=== PATIENT | female | born 1965 | race Caucasian/White ===

== ENCOUNTER 2023-10-13 21:20 | Emergency (ER) | payer OTHER, SELFPAY ==
[2023-10-13 21:35] VITALS: BP 154/93
--- NOTE | 2023-10-14 02:12 | ED.MUSCINJ ---
HPI-Injury
General
Chief Complaint: Fall
Source: patient
Exam Limitations: none
Time Seen by Provider: 10/14/23 01:45
Nursing documentation reviewed up to this point in time: agreed with
Travel History
Have you had any contact with someone who has COVID-19?: No
Do you have any symptoms of coronavirus? Fever > 100 degrees, chills, cough, shortness of breath, sore throat, loss of taste or smell, muscle aches, or headache?: No
History of Present Illness-Injury
Initial Injury comments:
This a pleasant 58-year-old female who presents with multiple musculoskeletal complaints. She was chasing her dog on October 02 when she slipped on some mud and fell landing on her left knee. She states that she has had increased swelling and
bruising in the knee since then. For the last day or so she states that her left ankle started to swell. She came in after a telehealth doctor advised her to get an ultrasound of the lower extremity. Patient has been ambulatory since the fall.
At that time she denied head injury or loss of consciousness. 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 She reports no new injuries. Denies fever, chills, nausea or vomiting. Denies chest pain or shortness
of breath. She is not on any blood thinners.
Past History
Past History
ED Past Medical History: CAD, HTN and Hypercholesterolemia
ED Past Surgical History: Cardiac
Social History
Tobacco: Non-smoker
Alcohol: Occasional
Drug: None
Personal:
Living: with family
Review of Systems
Review of Systems
Allergies reviewed?: Yes
All Other Systems: ROS reviewed and negative except as documented in HPI and ROS
Musculoskeletal: Reports joint pain, joint swelling, muscle pain, muscle stiffness and edema
Phy Exam
General Physical Exam
General Presentation: well appearing and mild distress
General age: appears stated age
General Skin: warm, dry and other (Some ecchymosis about the left knee)
General Habitus: obese
General Mental: alert
General Hydration: appears well hydrated
Cardiovascular Exam
Cardiovascular Exam: regular rate/rhythm and no edema
Pulmonary Exam
Pulmonary Exam: lungs clear and no respiratory distress
Neurological Exam
Neurological Exam: alert and oriented x3
Musculoskeletal Exam
Musculoskeletal Exam: full ROM, edema and neuro vasc intact
Skin Exam
Skin Exam: normal color, tenderness and other (Ecchymosis)
Psychiatric Exam
Psychiatric Exam: normal mood/affect
Injury Course
Orders/Labs/Results
Orders:
Orders
10/13/23 21:36
US Legs, Left [US Periph Venous LOWER Ext LT] Urgent
Comment:
Reason For Exam: brusing, swelling
10/13/23 21:38
CR Ankle - Left Min 3 Views Urgent
Comment:
Reason For Exam: fall, injury
CR Knee - Left 4 Or More View* Urgent
Comment:
Reason For Exam: fall, injury
10/13/23 21:39
CR Clavicle - Right Complete Urgent
Comment:
Reason For Exam: fall, injury
10/13/23 21:40
CR Leg Tibia/fibula Left 2 Vw Urgent
Comment:
Reason For Exam: fall, injury
10/14/23 02:10
Darin Wrap Left-Treatment ONCE
*Critical Care Note
Total Time (30-74mins, 75-104mins- exclusive of procedures): Not Applicable
ED Attending Note
-
Portions of this chart may have been created with voice recognition software.� Occasional wrong word or��sound alike� substitutions may have occurred due to the inherent limitations of voice recognition software.
Discharge Plan
Departure
Patient Disposition: Home (Routine Discharge)
Date of Disposition: 10/14/23
Time of Disposition: 02:15
Patient with high blood pressure during this ER visit?: Yes
Condition: Good
Discharge Problem:
Ecchymosis, Contusion
Instructions: Contusion (DC), BLOOD PRESSURE
Prescriptions:
No Action
atorvastatin 40 MG tablet
40 mg PO QPM Qty: 30 3RF
aspirin 81 MG tablet,delayed release (DR/EC)
81 mg PO DAILY Qty: 0 0RF
metoprolol tartrate 50 MG tablet
50 mg PO BID Qty: 60 3RF
nitroglycerin 0.4 MG tablet, sublingual
0.4 mg sublingual [id number] PRN (Reason: Chest Pain ) Qty: 25 3RF
Hydrochlorothiazide
25 mg PO DAILY
losartan 50 mg Tablet
50 mg PO DAILY
pantoprazole 40 MG tablet,delayed release (DR/EC)
40 mg PO DAILY
levothyroxine
50 mcg PO DAILY
Rx Instructions:
Pt. will bring in dosage
Referrals:
Do Hernandez PA-C [Family Provider] -
Activity Restrictions/Additional Instructions:
It was a pleasure meeting you and taking part in your care. We hope for your continued healing and wellness.
Please read discharge instructions in their entirety. However, they are for general education and may not describe your exact diagnosis at discharge. Information on your ER visit and medical conditions were discussed with you along with appropriate
follow up information...
If indicated, please take your medications as instructed and indicated on discharge paperwork.
Please schedule a follow up appointment as directed. Call to schedule an appointment
Please return to the emergency department with ANY change in, persisting, or worsening of symptoms. If any of your symptoms do not improve, or persist, or become more severe within 6-12 hours, please return to the emergency department for further
care.
Please return to the emergency department if you develop a headache, neck pain/stiffness, fever greater than 100.4F, chest pain, shortness of breath, persistent nausea, vomiting, slurred speech, difficulty walking, numbness/tingling, weakness, signs
of infection or any other symptoms that are worrisome to you.
If you have any questions or concerns please do not hesitate to call the Hospital at or E-mail me directly at [email or web address]
Interventions
Interventions:
*General Assessment Last Done: 10/13/23 21:34
*ED COVID-19 Vaccine History Last Done: 10/13/23 21:33
*Nursing Disposition Last Done: 10/14/23 02:50
Discharge Date and Time
Discharge Date/Time: 10/14/23 02:51
Print Language: KHMER
[2023-10-14 02:50] VITALS: BP 145/83
== END 2023-10-14 02:51 | disposition home or self-care (01) ==
LOC: EMR 21:20
PROVIDERS: EMERGENCY PHYSICIAN Student in an Organized Health Care Education/Training Program; FAMILY PHYSICIAN Student in an Organized Health Care Education/Training Program
DX: S80.02XA Contusion of left knee, initial encounter (principal); W01.0XXA Fall on same level from slipping, tripping and stumbling without subsequent striking against object, initial encounter; I10 Essential (primary) hypertension
CPT/HCPCS: 99284; 73000; 73564; 73590; 73610; 93971

== ENCOUNTER → 2023-10-29 09:35 | Outpatient (REF) | payer OTHER, SELFPAY | LOC: MRI 3T 09:35 | PROVIDERS: ATTENDING PHYSICIAN Student in an Organized Health Care Education/Training Program | DX: M25.562 Pain in left knee (principal); W19.XXXD Unspecified fall, subsequent encounter | CPT/HCPCS: 73721 ==

== ENCOUNTER → 2024-02-03 09:29 | Outpatient (REF) | payer OTHER, SELFPAY | LOC: HWRAD 09:29 | PROVIDERS: ATTENDING PHYSICIAN Surgery; FAMILY PHYSICIAN Student in an Organized Health Care Education/Training Program | DX: K40.90 Unilateral inguinal hernia, without obstruction or gangrene, not specified as recurrent (principal) | CPT/HCPCS: 74177; Q9967 ==

== ENCOUNTER → 2024-02-20 10:13 | Outpatient (REF) | payer OTHER, SELFPAY | LOC: HWRAD 10:13 | PROVIDERS: ATTENDING PHYSICIAN Student in an Organized Health Care Education/Training Program | DX: R74.8 Abnormal levels of other serum enzymes (principal) | CPT/HCPCS: 76700 ==

== ENCOUNTER 2024-05-07 06:44 | Day surgery (SDC) | payer OTHER, SELFPAY ==
[2024-05-07] VITALS (11 sets, daily range): BP systolic 107–136; BP diastolic 64–80; BMI 42.7
[2024-05-07] MEDS: TYLENOL 1000 MG PO (08:20)
--- NOTE | 2024-05-07 11:16 | OR.RPT ---
Addendum entered and electronically signed by Jeromy Driscoll MD 05/07/24 11:27:
The assistance of Jey LEE was required due to the complexity of the procedure. During the procedure she assisted with retraction, resection, and closure of the wound.
Original Note:
Operative Report
Operative Report
Primary Surgeon: Americo
Assisting Surgeon: Jey LEE
Pre-op Diagnosis: Bilateral inguinal hernias
Post-op Diagnosis: Same
Procedure Performed: Robot assisted laparoscopic repair of bilateral inguinal hernias
Anesthesia Type: GETA
Specimen / Cultures: None
Estimated Blood Loss: 35cc
Complications: None immediate
Operative Findings: Very large right groin indirect defect with massive amount of incarcerated omentum; large left cord lipoma with shallow indirect defect; B/L MID 3D Max
Date of surgery: 05/07/24
Indications:� This 58F developed a symptomatic right inguinal hernia and an incidental left inguinal hernia was identified on cross sectional imaging. She asked that we repair both groins today. Robot assisted laparoscopic repair was planned.
Description of procedure:� The patient was taken to the operating room and positioned into supine position. The patient�s abdomen was prepped and draped in standard sterile fashion. A time-out was completed verifying correct patient, procedure,
site, positioning, and implants and special equipment prior to beginning this procedure.
The right groin hernia was incarcerated. Unsuccessful attempts at reduction were made but ultimately abandoned. A stab incision was made in the left upper quadrant, a Veress needle was inserted and proper position was confirmed by aspiration and
saline drop test. Following this, pneumoperitoneum was created with insufflation of carbon dioxide to 12 mmHg. Then a 8mm robotic trocar was inserted above and to the left of the umbilicus. A laparoscope was inserted and the area of initial trocar
entry and Veress needle placement were both inspected and no injuries were found. Two 8mm trocars were then placed lateral to the rectus sheath under direct visualization.
Both inguinal regions were inspected and the median umbilical ligament, medial umbilical ligament, and lateral umbilical fold were identified. Attention was turned to the right groin. Omentum was manually reduced. The peritoneum was incised
transversely above the defect and a flap was developed in the caudad direction. Arash�s ligament was identified ultimately dissected to its junction with the iliac vein and the space of Retzius was developed bluntly.�The dissection was continued
inferiorly to the iliopubic tract, with care taken to avoid injury to the femoral branch of the genitofemoral nerve and the lateral femoral cutaneous nerve. The round ligament was sacrificed low near the peritoneum.
The direct space was inspected and no hernia defect was identified. The femoral space was inspected no defect was identified.� The indirect space was inspected and a hernia was identified and reduced by gentle traction. The sac was large and deep
but was totally reduced. The canal was inspected and a moderate sized lipoma was identified and reduced.
Attention was turned to the left groin and the above process was repeated. A shallow indirect hernia was identified and reduced by gentle traction. The canal was inspected and a large lipoma was identified and reduced by gentle traction. No other
hernias were identified.
Extra large left and right MID 3D max mesh was passed through a trocar. The mesh was placed into the preperitoneal space and moved into position to lay flat and completely cover the direct, indirect, and femoral spaces with overlap at the midline.
The mesh was secured into place using 2-0 vicryl suture to Arash�s ligament medially and laterally. Care was taken to avoid the inferolateral triangles containing the iliac vessels and genital nerves. The peritoneal flap was closed over the mesh
and secured with 2-0 monocryl stratafix suture in similar positions of safety. Flap rents on either side were repaired with 2-0 vicryl ad 2-0 monocryl suture. A 14g angiocath was used to decompress the preperitoneal space revealing good seal and all
mesh in good position without folding or curling.
After ensuring adequate hemostasis, the trocars were removed and the pneumoperitoneum allowed to escape. The trocar incisions were closed at the skin level using 4-0 monocryl and topical skin adhesive. All counts were correct and the patient
tolerated the procedure well and was taken to the postanesthesia care unit in stable condition.
[2024-05-07] MEDS: DILAUDID 0.25 MG IV (12:14)
== END 2024-05-07 13:32 | disposition home or self-care (01) ==
LOC: SDS 06:44
PROVIDERS: ATTENDING PHYSICIAN Surgery
DX: K40.20 Bilateral inguinal hernia, without obstruction or gangrene, not specified as recurrent (principal)
CPT/HCPCS: 49650; C1781

== ENCOUNTER 2024-07-02 14:32 | Emergency (ER) | payer OTHER, SELFPAY ==
[2024-07-02 14:48] VITALS: BP 119/79
[2024-07-02 15:14] LABS: % Eosinophils 3.9 % (0-6); % Immature Granulocytes 0.3 % (0-0.5); % Lymphocytes 16.3 % (20.5-51.1); % Monocytes 6.8 % (1.7-9.3); % Neutrophils 71.7 % (42.2-75.2); Absolute Basophils 0.1 10^3/uL (0-0.2); Absolute Eosinophils 0.2 10^3/uL (0-0.7); Absolute Monocytes 0.4 10^3/uL (0.1-0.6); Absolute Neutrophils 4.2 10^3/uL (1.4-6.5); Hematocrit 39.7 % (37.0-47.0); Hemoglobin 12.7 g/dL (12.0-16.0); Mean Corpuscular Hgb 26.8 pg (27.0-31.0); Mean Corpuscular Volume 83.9 fL (81.0-99.0); Mean Platelet Volume 10.6 fL (7.4-10.4); Nucleated Red Blood Cells % 0 %; Platelet Count 247 10^3/uL (130-400); Red Blood Cell Count 4.73 10^6/uL (4.20-5.40); Red Cell Dist. Width 14.4 % (11.5-14.5); White Blood Cell Count 5.8 10^3/uL (4.8-10.8)
[2024-07-02 15:27] LABS: ALT (SGPT) 21 U/L (0-35); AST (SGOT) 20 U/L (14-36); Albumin 3.8 g/dl (3.5-5.0); Alkaline Phosphatase 117 U/L (38-126); Blood Urea Nitrogen 17 mg/dl (7-17); Calcium 9.1 mg/dl (8.4-10.2); Carbon Dioxide 26 mmol/L (22-30); Chloride 103 mmol/L (98-107); Glucose 115 mg/dl (70-99); Potassium 3.8 mmol/L (3.5-5.1); Sodium 137 mmol/L (135-145); Total Bilirubin 0.4 mg/dl (0.2-1.3); Total Protein 6.7 g/dl (6.3-8.2); eGFR > 60.00
[2024-07-02 17:54] LABS: Urine Albumin Negative (Neg - Trace); Urine Bilirubin Negative (Negative); Urine Character Clear (Clear); Urine Color Yellow; Urine Glucose Negative (Negative); Urine Ketone Negative (Negative); Urine Leukocyte 2+ (Negative); Urine Nitrite Negative (Negative); Urine Occult Blood Negative (Negative); Urine Urobilinogen Negative (Neg - 1+)
[2024-07-02 18:18] LABS: Urine Squamous Cell >30 /LPF (Few)
[2024-07-02 18:19] LABS: Urine Bacteria Many (Negative)
--- NOTE | 2024-07-02 18:24 | ED.GENMED ---
History of Present Illness
General
Chief Complaint: Abdominal Symptoms
Source: patient
Exam Limitations: none
Time Seen by Provider: 07/02/24 18:04
History of Present Illness
History of Present Illness:
This is a 58 year old female that comes in with c/o right lower abd pain. States that she had Bilateral inguinal hernia repairs on 05/07. States that 2 weeks after the surgery she started to have some discomfort in the RLQ. States that she just
pushed it off. Then she went to see the Surgeon and told him about this as she said she felt like the hernia was still there. States that it has continued to get larger and she has pain with walking and standing. States that she called last week but
he is out till the . Denies any fever, chills, chest pain, SOB, nausea, vomiting, diarrhea, headache, dizziness, urinary burning.
Past History
Past History
ED Past Medical History: CAD, GERD, HTN, Hypercholesterolemia, MA and Hypothyroidism
ED Past Surgical History: Cardiac (Stent), Gynecological (Uterine polyp removed) and Other (Herniated disc)
Social History
Tobacco: Non-smoker
Alcohol: Occasional
Drug: None
Personal:
Living: with family
Employment: Employed
Review of Systems
Review of Systems
All Other Systems: ROS reviewed and negative except as documented in HPI and ROS
Constitutional: Reports no symptoms; Denies fever or chills
EENT: Reports no symptoms
Respiratory: Reports no symptoms; Denies cough or trouble breathing
Cardiac: Reports no symptoms; Denies chest pain
ABD/GI: Reports abdominal pain; Denies nausea, vomiting or diarrhea
: Reports no symptoms; Denies dysuria, frequency or urgency
Musculoskeletal: Reports no symptoms
Skin: Reports no symptoms
Neurological: Reports no symptoms; Denies dizzy or headache
Phy Exam
General Physical Exam
General Presentation: well appearing and no apparent distress
General age: appears stated age
General Skin: warm and dry
General Habitus: normal
General Mental: alert
General Hydration: appears well hydrated
ENT Exam
ENT Exam: TM's normal, pharynx normal and neck supple
Eye Exam
Eye Exam: EOMI
Cardiovascular Exam
Cardiovascular Exam: regular rate/rhythm, no edema, no murmur and normal peripheral pulses
Pulmonary Exam
Pulmonary Exam: lungs clear, no respiratory distress, no rales, chest non tender, no crackles, no rhonchi, no wheezing and no cough
Gastrointestinal Exam
Gastrointestinal Exam: normal bowel sounds, soft, no organomegaly, no pulsatile mass, non distended and tender (RLQ with hard palpable mass about 6 inches in length and 3 inches wide)
Musculoskeletal Exam
Musculoskeletal Exam: full ROM and no edema
Skin Exam
Skin Exam: normal color, warm/dry, no rash and no petechia
Course
Orders/Labs/Results
Orders:
Orders
07/02/24 14:59
CMP [Comprehensive Metabolic Panel] Urgent
Complete Blood Count/With Diff Urgent
07/02/24 17:44
Urinalysis Reflex To Culture Urgent
Date Specimen was Collected: 07/02/24
Time Specimen was Collected: 17:43
Urine Microscopic Reflex Cult Urgent
Urine Culture Urgent
SUMMER Source: U
Specimen Description:
Date Specimen was Collected: 07/02/24
Time Specimen was Collected: 17:43
07/02/24 18:24
CT Abd/pelvis W Iv Cont Urgent
Comment:
Reason For Exam: Right lower quadrant hard mass
0.9% Sodium Chloride 500 ml [Nss] 500 ml IV BOLUS
Abnormal Lab Results
07/02/24 07/02/24
14:59 17:44
MCH 26.8 L pg
(27.0-31.0)
MCHC 32.0 L g/dL
(33.0-37.0)
MPV 10.6 H fL
(7.4-10.4)
Absolute Lymphs (auto) 1.0 L 10^3/uL
(1.2-3.4)
Lymphocytes % 16.3 L %
(20.5-51.1)
Glucose 115 H mg/dl
(70-99)
Leukocyte Esterase Rfl 2+ A
(Negative)
Urine RBC 3-6 A /HPF
(0-2)
Urine WBC (Reflex) 11-15 A /HPF
(0-5)
Urine Bacteria (Reflex) Many A
(Negative)
07/02/24 14:59
07/02/24 14:59
Hyperglycemia, Urine Contaminated
Vital Signs
Initial and Last Documented VS:
Initial Vital Signs
Temp Pulse Resp BP Pulse Ox
98.2 F 83 18 119/79 98
07/02/24 14:48 07/02/24 14:48 07/02/24 14:48 07/02/24 14:48 07/02/24 14:48
Last Documented Vital Signs
Temp Pulse Resp BP Pulse Ox
98.2 F 83 18 119/79 98
07/02/24 14:48 07/02/24 14:48 07/02/24 14:48 07/02/24 14:48 07/02/24 14:48
MDM/Problems Addressed
Differential Diagnosis Includes:
Abscess, Hematoma
MDM/Problems Addressed:
This is a 58 year old female that comes in with c/o right lower abd discomfort. States that this started 2 weeks after her surgery and she feels that the lump is getting larger.
Will check labs. Urine and get CT scan.
Message sent to Dr. Styles with CT report. If he is in agreement patient will be able to go home and follow up with the Surgery. Dr Styles is in agreement that the patient can go home and follow up with Dr Driscoll. Explained to patient that there
is fluid where the hernia was removed and that the body will reabsorb this. Patient to return with any concern.
Chronic conditions affecting care: Previous abdomnial surgery
Acute Exacerbation and/or Progression of Chronic Illness: Previous abdomnial surgery
*Radiology
Radiology exam reviewed: radiology read reviewed (CT-The neck of the right inguinal hernia appears to have been clossed in the interval since the previous examination, however, there is a 11cm fluid collection in the right inguinal region where the
hearnia was previously present and there is edema and a 13cm fact collection in the right hemipelvis ) and other (CT cont- presumably secondary to the hernia reduction)
*Pulse Oximetry
Patient hypoxic: no
*EKG
Interpreted by ED Provider?: NA
Rate: EKG- N/A
*Wardrobe Supervisor Interpretation
Rate: Wardrobe Supervisor- N/A
*Critical Care Note
Total Time (30-74mins, 75-104mins- exclusive of procedures): Not Applicable
ED Attending Note
-
Portions of this chart may have been created with voice recognition software.� Occasional wrong word or��sound alike� substitutions may have occurred due to the inherent limitations of voice recognition software.
Discharge Plan
Departure
Patient Disposition: Home (Routine Discharge)
Date of Disposition: 07/02/24
Time of Disposition: 22:03
Patient with high blood pressure during this ER visit?: No
Condition: Good
Covid-19: Not Applicable
Discharge Problem:
Right lower quadrant abdominal pain
Instructions: Abdominal Pain
Prescriptions:
No Action
aspirin 81 MG tablet,delayed release (DR/EC)
81 mg PO DAILY Qty: 0 0RF
metoprolol tartrate 50 MG tablet
50 mg PO BID Qty: 60 3RF
nitroglycerin 0.4 MG tablet, sublingual
0.4 mg sublingual [id number] PRN (Reason: Chest Pain ) Qty: 25 3RF
Hydrochlorothiazide
25 mg PO DAILY
losartan 50 mg Tablet
50 mg PO DAILY
pantoprazole 40 MG tablet,delayed release (DR/EC)
40 mg PO DAILY
levothyroxine
50 mcg PO DAILY
Rx Instructions:
Pt. will bring in dosage
rosuvastatin 40 mg Tablet
40 mg PO DAILY
Zepbound 10 mg/0.5 mL Pen Injector
10 mg SC QWEEK
oxycodone 5 mg tablet
5 - 10 mg PO Q4HPRN PRN (Reason: moderate to severe pain) Qty: 20 0RF
Referrals:
Juanjose Sood DO [Family Provider] -
Jeromy Driscoll MD [Active] - Call in 1-3 days for appt
Activity Restrictions/Additional Instructions:
As discussed, your blood work is normal. Your CT shows that there is a fluid collection where the hernia was removed. This will be reabsorbed by the body. Please call Dr. Driscoll office and set up a follow up appointment for recheck. You may try
using a heating pad to this area for comfort. Tylenol or Ibuprofen for pain. IF YOU HAVE ANY OTHER CONCERNS PLEASE RETURN TO THE EMERGENCY ROOM.
Interventions
Interventions:
*Risk Screen - Suicide Last Done: 07/02/24 14:48
AP-Msqzfs-Qsnjwphopz Assessment Last Done: 07/02/24 17:50
Discharge Date and Time
Print Language: TURKISH
[2024-07-02] MEDS: NSS 500 IV (18:58)
== END 2024-07-02 22:27 | disposition home or self-care (01) ==
LOC: EMR 14:32
PROVIDERS: Student in an Organized Health Care Education/Training Program; EMERGENCY PHYSICIAN Emergency Medicine; FAMILY PHYSICIAN Family Medicine
DX: R10.31 Right lower quadrant pain (principal); K40.90 Unilateral inguinal hernia, without obstruction or gangrene, not specified as recurrent; R60.0 Localized edema; I10 Essential (primary) hypertension; E78.00 Pure hypercholesterolemia, unspecified; E03.9 Hypothyroidism, unspecified; I25.10 Atherosclerotic heart disease of native coronary artery without angina pectoris; K21.9 Gastro-esophageal reflux disease without esophagitis; I25.2 Old myocardial infarction; Z95.5 Presence of coronary angioplasty implant and graft; Z79.82 Long term (current) use of aspirin
CPT/HCPCS: 99284; 96360; 74177; 80053; 81003; 81015; 85025; 87086; Q9967

== ENCOUNTER 2024-07-29 20:38 | Inpatient (IN) | payer OTHER, SELFPAY ==
[2024-07-29] VITALS (8 sets, daily range): BP systolic 127–153; BP diastolic 80–126; BMI 43.3; BMI 42.5
--- NOTE | 2024-07-29 12:07 | CON.NEURO ---
Neuro Assessment/Plan
Assessment
Acute onset of bilateral hand dysfunction and sensation change with slurred speech
Most likely secondary to panic due to the recurrence of the event and bilateral nature of symptomatology
Differential diagnosis includes acute ischemic injury only suggested by the patient's slurred speech and the patient's prior history of myocardial infarction
CTA of the head was read as possible right M2 occlusion which is not clinically suggested
CT of head was unremarkable
Patient was not a candidate for either tenecteplase or IAT due to NIH stroke scale less than 6
Plan
Check MRI of brain for completeness
Continue patient's aspirin without addition of clopidogrel unless there is evidence of an acute ischemic injury
Psychological therapy as outpatient including cognitive behavioral therapy
Continue rosuvastatin 40 mg daily especially in light of the patient's LDL greater than 70
Not clear patient would benefit from rehabilitation evaluation or treatment
Provide medical educational materials for stroke
Goal of normotension
Continue current medications
Will follow pending results
Consultation
Order
Date of Consultation: 07/29/24
Requesting Provider: Emergency department provider
Reason for Consult: Speech change
Subjective/Objective
Subjective Data
Date of Service: July 29, 2024
Right-Handed
Patient reports that she was in her usual state of health at 4:00 this morning at which time she woke spontaneously and did not note any symptomatology. When she woke for the day at 0900 hrs., she again was not experiencing any symptomatology. At
1030 hrs. this morning, the patient noted sudden onset of hand shaking bilaterally and suggestion of hand weakness on the left greater than on the right. The patient was described by her as having unclear words. The patient is also tearful
and crying at the time of symptoms. There was no other symptomatology at that time. The patient not have prior episodes which were similar. The patient's symptoms were described as spontaneously resolving after a few minutes.
While driving to this hospital's emergency department, the patient had recurrence of all symptoms including tearfulness and crying which all again spontaneously resolved after a few minutes and without residua.
No known modifying factors.
Objective Data
Vital Signs
Temp Pulse Resp BP Pulse Ox
37.2 C 84 20 149/87 98
07/29/24 11:30 07/29/24 11:48 07/29/24 11:48 07/29/24 11:48 07/29/24 11:48
Patient Allergies
No Known Allergies Allergy (Verified 07/02/24 14:49)
CVA Assessment
Onset of Stroke Symptoms
Onset of symptoms known: Yes
Date of onset of symptoms: 07/29/24
Time of onset of symptoms: 10:30
Time pt last seen normal is known: Yes
Date last time pt seen normal: 07/29/24
Time last time pt seen normal: 10:30
NIH Stroke Score
Level of Consciousness: 0 - Alert
LOC Questions: 0-Answers both correctly
LOC Commands: 0-Performs both correctly
Best Horizontal Gaze: 0-Normal
Visual Milton: 0=Normal, no visual loss
Facial Palsy: 0=Normal, symmetrical
Motor - Left Arm: 0=No drift 10 seconds
Motor - Right Le-No drift 5 seconds
Motor - Left Le-No drift 5 seconds
Limb Ataxia: 0-Absent
Sensation: 0-Normal
Best Language: 0-No aphasia
Dysarthria: 0-Normal
Extinction and Inattention: 0-No abnormality
Tenecteplase Contraindications
Inclusion and Exclusion criteria reviewed: Yes
IAT Contraindications: NIHSS < 6
Review of Systems
-
History Source: Patient and Family
All other systems: Reviewed and negative
EENT: Negative Blurry Vision or Swallowing Difficulty
Respiratory: Negative Trouble Breathing
Cardiac: Negative Chest Pain
Abdomen/GI: Negative Incontinence of Stool
Genitourinary: Negative Incontinence
Musculoskeletal: Negative Back Pain or Neck Pain
Neuro: Negative Dizzy or Headache
Physical Exam
-
General: No Apparent Distress and Appears Stated Age
Eyes: OU Absent Papilledema, Round OU, [place] Conjunctivae and No Ptosis
HEENT: Anicteric and Moist Mucous Membranes
Neck: Full Range of Motion
Respiratory: No Dyspnea
Cardiac: No JVD
GI: Non-distended
Skin: Unremarkable
Extremities: No Clubbing, No Cyanosis and No Edema
Psych: Negative Intact Judgement/Insight
Extended Neurological Exam
Mood & Affect: Mood Unremarkable and Affect Unremarkable
Attention Span & Concentration: Awake, Alert, Interactive and No Difficulty with 2 Step Request
Memory: Unremarkable
Tremor: Hand Tremor Absent and Head Tremor Absent
Speech: Quality Unremarkable and Quantity Unremarkable
Cranial Nerve II: Left Eye: Pupillary Reactivity Unremarkable, Pupillary Size Unremarkable and Visual Milton Intact
Cranial Nerve II: Right Eye: Pupillary Reactivity Unremarkable, Pupillary Size Unremarkable and Visual [place] Intact
Cranial Nerves III, IV, : Extraocular Movement: Extraocular Movement Full in all Directions
Cranial Nerve VII: Facial Symmetry: Normal Facial Symmetry
Cranial Nerve VIII: Hearing: Unremarkable Hearing to Normal Conversational Volume
Cranial Nerves IX, X: Palate Movement: Palate Elevation Symmetric
Cranial Nerve XI: Shoulder Shrug: Unremarkable
Cranial Nerve XII: Tongue Protusion: Midline
Muscle Strength, Overall: Full Throughout
Muscle Bulk & Tone: Bulk Unremarkable and Tone Unremarkable
Pronator Drift: No Drift in Upper Extremities
Deep Tendon Reflexes: Unremarkable Throughout
Touch Sensation: Unremarkable
Coordination: [id number] Testing Unremarkable
Babinski Sign: Absent Bilaterally
Data Reviewed
-
CT-A: Report Reviewed and Image Reviewed
CT Head: Report Reviewed and Image Reviewed
Labs: Report Reviewed
Lipid Profile: Ordered
Reviewed with: Physician, Patient and Family
Old Records: Summarized
Medications
-
Home Medications
�Medication �Instructions �Recorded
aspirin 81 mg tablet,delayed 81 mg PO DAILY ##0 04/16/15
release
metoprolol tartrate 50 mg tablet 50 mg PO BID ##60 04/16/15
nitroglycerin 0.4 mg sublingual 0.4 mg sublingual [id number] PRN 04/16/15
tablet Chest Pain ##25
Hydrochlorothiazide 25 mg PO DAILY 07/13/18
levothyroxine 50 mcg PO DAILY 05/20/22
losartan 50 mg tablet 50 mg PO DAILY 05/20/22
pantoprazole 40 mg tablet,delayed 40 mg PO DAILY 05/20/22
release
rosuvastatin 40 mg tablet 40 mg PO DAILY 05/04/24
tirzepatide (weight loss) 10 10 mg SC QWEEK 05/04/24
mg/0.5 mL subcutaneous pen
injector (Zepbound)
oxycodone 5 mg tablet 5 - 10 mg (1 - 2 x 5 mg) PO Q4HPRN 05/07/24
PRN moderate to severe pain #20
tabs
Past History
Past History
ED Past Medical History: CAD, GERD, HTN, Hypercholesterolemia, MS, Hypothyroidism and Other (Morbid obesity, cardiomyopathy)
ED Past Surgical History: Cardiac (Stent), Gynecological (Uterine polyp removed, D&C 2022) and Other (Herniated disc, inguinal herniorrhaphy bilaterally 2023)
Social History
Tobacco: Non-smoker
Alcohol: Occasional
Drug: None
Personal:
Living: with family
Employment: Employed
Family History
Family History: CAD
[2024-07-29 12:19] LABS: % Eosinophils 3.1 % (0-6); % Immature Granulocytes 0.3 % (0-0.5); % Lymphocytes 16.5 % (20.5-51.1); % Monocytes 7.5 % (1.7-9.3); % Neutrophils 71.6 % (42.2-75.2); Absolute Basophils 0.1 10^3/uL (0-0.2); Absolute Eosinophils 0.2 10^3/uL (0-0.7); Absolute Monocytes 0.5 10^3/uL (0.1-0.6); Absolute Neutrophils 4.4 10^3/uL (1.4-6.5); Hematocrit 42.6 % (37.0-47.0); Hemoglobin 13.7 g/dL (12.0-16.0); Mean Corp Hgb Conc. 32.2 g/dL (33.0-37.0); Mean Corpuscular Hgb 26.7 pg (27.0-31.0); Mean Platelet Volume 10.9 fL (7.4-10.4); Nucleated Red Blood Cells % 0 %; Platelet Count 226 10^3/uL (130-400); Red Blood Cell Count 5.13 10^6/uL (4.20-5.40); Red Cell Dist. Width 15.1 % (11.5-14.5); White Blood Cell Count 6.1 10^3/uL (4.8-10.8)
[2024-07-29 12:23] LABS: ALT (SGPT) 20 U/L (0-35); AST (SGOT) 25 U/L (14-36); Albumin 4.3 g/dl (3.5-5.0); Alkaline Phosphatase 133 U/L (38-126); Blood Urea Nitrogen 17 mg/dl (7-17); Calcium 9.2 mg/dl (8.4-10.2); Carbon Dioxide 28 mmol/L (22-30); Chloride 101 mmol/L (98-107); Estimated Creatinine Clearance 115 ml/min; Glucose 100 mg/dl (70-99); Potassium 4.2 mmol/L (3.5-5.1); Sodium 139 mmol/L (135-145); Total Bilirubin 0.6 mg/dl (0.2-1.3); Total Protein 7.4 g/dl (6.3-8.2); eGFR > 60.00
[2024-07-29 12:25] LABS: PT 12.4 Sec (11.4-14.6)
[2024-07-29 12:38] LABS: Troponin I < 0.012 ng/ml
[2024-07-29 12:41] LABS: APTT 22.3 Sec (23.4-35.0)
[2024-07-29 13:41] LABS: HDL Cholesterol 66 mg/dl; LDL Cholesterol, Calculated 129 mg/dl; Total Cholesterol 220 mg/dl (50-199); Triglyceride 129 mg/dl (10-149); Very Low Density Lipoprotein 25 mg/dl (0-30)
--- NOTE | 2024-07-29 13:57 | ED.CVA ---
History of Present Illness
General
Chief Complaint: CVA/TIA Symptoms
Source: patient
Exam Limitations: none
Time Seen by Provider: 07/29/24 11:43
Nursing documentation reviewed up to this point in time: agreed with
Onset of Stroke Symptoms
Onset of symptoms known: Yes
Date of onset of symptoms: 07/29/24
Time of onset of symptoms: 10:00
History of Present Illness
History of Present Illness:
Patient presents to ED for evaluation secondary to slurred speech noted by patient and her friend with whom she was speaking with, as well as by her this morning, around 10 AM. Patient reports waking up around 9:30 AM 'and not feeling
well'. Denies headache. Denies dizziness. Denies blurred vision. Denies loss of sensation or weakness. Denies difficulty with swallowing. Denies difficulty with ambulation. Denies previous history of similar symptoms. In addition, patient
presents with asymmetric facial droop, which is new to the patient and her spouse.
Past History
Past History
ED Past Medical History: CAD, GERD, HTN, Hypercholesterolemia, [place], Hypothyroidism and Other (Morbid obesity, cardiomyopathy)
ED Past Surgical History: Cardiac (Stent), Gynecological (Uterine polyp removed, D&C 2022) and Other (Herniated disc, inguinal herniorrhaphy bilaterally 2023)
Social History
Tobacco: Non-smoker
Alcohol: Occasional
Drug: None
Personal:
Living: with family
Employment: Employed
Family History
Family History: CAD
Review of Systems
Review of Systems
Allergies reviewed?: Yes
All Other Systems: ROS reviewed and negative except as documented in HPI and ROS
Constitutional: Reports no symptoms
EENT: Reports no symptoms
Respiratory: Reports no symptoms
Cardiac: Reports no symptoms
ABD/GI: Reports no symptoms
Musculoskeletal: Reports no symptoms
Skin: Reports no symptoms
Neurological: Reports other (facial droop and slurred speech)
Phy Exam
Physical Exam
Physical Exam:
Physical Exam
General: no apparent distress, not acutely ill. afebrile
Head: nc/at. eomi
Neck: supple. normal range of motion.
Heart: irregularly irregular, no murmur. equal radial pulses.
Lungs: no acute respiratory distress. clear bilaterally
Abdomen: normal bowel sounds. not tender.
Neuro: alert and oriented x 3. no focal sensory/motor deficit. normal speech. left facial droop noted.
Skin: no rash
Psychiatric: well kept. interactive and cooperative
Extremities: no edema. no calf tenderness.
Course
Orders/Labs/Results
Orders:
Orders
07/29/24 Breakfast
Regular
At Your Request: Full Participation
Does patient need a safe tray?: No
07/29/24 11:45
Electrocardiogram (*1) Urgent
Reason for Study: Other
Other Reason for Exam: Possible Stroke
Cardiac Monitoring- Treatment ONCE
EKG- Treatment ONCE
IV Insert/Care/Rem.- Treatment PRN
Vital Signs As Directed
Frequency: Other
Weight As Directed
Frequency: Once
Comment: ZERO STRETCHER SCALE FOR ACCURATE WEIGHT
07/29/24 11:48
Cardiovascular Evaluation Urgent
Comment: ADD ON
Complete Blood Count/With Diff Urgent
Comprehensive Metabolic Panel Urgent
Glycohemoglobin (HgbA1c) Urgent
PTT Urgent
Prothrombin Time Urgent
TSH Reflex To Free T4 Urgent
Comment: ADDON
Troponin I Urgent
07/29/24 11:58
CT Head W/o Iv Contrast Urgent
Comment:
Reason For Exam: lack of coordination with facial droop
07/29/24 12:03
CT Head & Neck Angio W/wo IV Urgent
Comment:
Reason For Exam: facial droop with slurred speech
07/29/24 12:05
NEUROLOGY CONSULT Urgent
Consulting Provider: Oswaldo Jones
Was physician already notified: Yes
Reason for consult: slurred specch, facial droop
07/29/24 12:59
Add On- LAB Urgent
Tests Added?: Lipid profile
07/29/24 13:03
Lorazepam [Ativan] 1 mg PO ONCE ONE
07/29/24 20:01
Admit/Transfer Patient As Directed
Co-Sign Provider:
Level of Care: Inpatient admission
Assign to:: Telemetry
Physician / Group: Jose De Jesus
Diagnosis: CVA
Reason for Telemetry: CVA/TIA
Date to Stop Telemetry: 08/01/24
Time to Stop Telemetry: 11:00
Reason for Hospitalization: CVA
Expected length of stay greater than two midnights?: Yes
ELOS- Estimated Length of Stay in days: 2
I certify the patient meets the requirements for IP care: Yes
PRN Pain Medication Management As Directed
May give lesser potent ordered pain med per pt: Yes
preference::
Protocol:: Medication orders for pain may be administered in a
manner that supports deferring to patient preference
when the pt is:
- Requesting an ordered lesser potent pain medication.
Least to most potent pain medications are defined
as: acetaminophen < NSAID < tramadol < opioids
(morphine, oxycodone, hydromorphone).
- Requesting a lesser dose of the same medication IF
ORDERED.
- Requesting a less intrusive route of administration
if both routes are prescribed by the provider (PO <
IV).
07/29/24 20:09
Code Status As Directed
Resuscitation Status: Full Code
07/29/24 21:26
Acetaminophen [Tylenol] 650 mg PO Q4HPRN PRN
HydrALAZINE [Apresoline] 5 mg IV Q6HPRN PRN
07/29/24 21:26
Activity As Directed
Activity Level: Ambulate
With Assistance
EKG with chest pain [ECG as needed] As Directed
ECG as needed for:: Chest Pain
I/O [Intake/ Output] As Directed
Frequency: Per unit guidelines
Neurological Checks As Directed
Frequency: q4h
Pneumatic Compression Sleeves As Directed
Type: Knee high
Vital Signs As Directed
Frequency: Per unit guidelines
Oxygen Therapy [O2 Therapy] [RESP] Routine
Titrate/Wean O2 to maintain O2 sat greater than (%): 94
Ot Eval And Treat Routine
PT Consult [Pt Eval And Treat] Routine
Activity Level: Ambulate
With Assistance
Speech Therapy Eval & Treat Routine
DX Deep Vein Thrombosis Video Routine
07/30/24 06:00
Basic Metabolic Panel IN AM
Complete Blood Count/No Diff IN AM
Levothyroxine [Synthroid] 50 mcg PO DAILY@0600
07/30/24 08:00
Aspirin Low Dose EC [Aspir Low (Enteric Coated)] 81 mg PO DAILY
Clopidogrel Bisulfate [Plavix] 75 mg PO DAILY
Losartan [Cozaar] 50 mg PO DAILY
Metoprolol [Lopressor] 50 mg PO BID
Pantoprazole [Protonix] 40 mg PO DAILY
Rosuvastatin Calcium [Crestor] 40 mg PO DAILY
07/30/24 13:31
MR Brain Without Contrast Routine
Reason For Exam: stroke
Recent pill cam endoscopy?: No
08/01/24 11:00
DC Protocol for Telemetry ONCE
Abnormal Lab Results
07/29/24
11:48
MCH 26.7 L pg
(27.0-31.0)
MCHC 32.2 L g/dL
(33.0-37.0)
RDW 15.1 H %
(11.5-14.5)
MPV 10.9 H fL
(7.4-10.4)
Absolute Lymphs (auto) 1.0 L 10^3/uL
(1.2-3.4)
Lymphocytes % 16.5 L %
(20.5-51.1)
APTT 22.3 L Sec
(23.4-35.0)
Glucose 100 H mg/dl
(70-99)
Alkaline Phosphatase 133 H U/L
(38-126)
Total Cholesterol 220 H mg/dl
(50-199)
07/29/24 11:48
07/29/24 11:48
Vital Signs
Initial and Last Documented VS:
Initial Vital Signs
Temp Pulse Resp BP Pulse Ox
98.9 F 89 18 146/91 100
07/29/24 11:30 07/29/24 11:30 07/29/24 11:30 07/29/24 11:30 07/29/24 11:30
Last Documented Vital Signs
Temp Pulse Resp BP Pulse Ox
98.4 F 99 18 144/84 96
07/29/24 21:30 07/29/24 21:30 07/29/24 21:30 07/29/24 21:30 07/29/24 21:30
MDM/Problems Addressed
MDM/Problems Addressed:
History and exam concerning for acute CVA. Initial NIH stroke score 1, no indication for tenecteplase treatment.
Patient evaluated by Dr. Jones, neurology, at bedside. Initial CT and CTA results reviewed and discussed. Dr. Jones feels that CT findings may represent chronic occlusion, not acute. Recommends MRI brain at this time, with further recommendation
to be provided afterwards.
*Critical Care Note
Total Time (30-74mins, 75-104mins- exclusive of procedures): Not Applicable
ED Attending Note
-
Portions of this chart may have been created with voice recognition software.� Occasional wrong word or��sound alike� substitutions may have occurred due to the inherent limitations of voice recognition software.
Discharge Plan
Departure
Patient Disposition: Admit
Date of Disposition: 07/29/24
Time of Disposition: 19:26
Admit to: Telemetry
Presentation/result/management discussed w/ accepting MD/DO: Hospitalist
Discharge Problem:
Acute CVA (cerebrovascular accident)
Interventions
Interventions:
*Risk Screen - Suicide Last Done: 07/29/24 11:30
*General Assessment Last Done: 07/29/24 11:30
*Neglect/Abuse Screening Last Done: 07/29/24 11:30
ED- Fall Risk Assessment Last Done: 07/29/24 11:43
*ED COVID-19 Vaccine History Last Done: 07/29/24 21:42
*Nursing Disposition Last Done: 07/29/24 21:17
ED- Pulmonary Assessment Last Done: 07/29/24 11:50
ED- Neurological Assessment Last Done: 07/29/24 11:44
ED- Cardiac Assessment Last Done: 07/29/24 11:50
ED Swallowing Screen Last Done: 07/29/24 11:49
Discharge Date and Time
Discharge Date/Time: 07/29/24 21:17
--- NOTE | 2024-07-29 20:12 | HPS.HSE ---
Family Physician
-
Family Physician: Juanjose Sood
Chief Complaint
-
Weakness, Slurred Speech
History of Present Illness
Patient is a 58y F with PMH significant for ASCVD, HTN and hypothyroidism who presents to ED complaining of weakness and slurred speech since this AM. Patient states that she woke feeling well this AM. Around 9:30 AM she noted slurring speech
while talking on the phone with a friend. She states that she had some clumsiness of the L hand and dropped a tissue. She pointed out her symptoms to her who states that he appreciated L facial drooping and slurred speech. Patient became
very anxious and overall somewhat tremulous during these events.
They presented to the ED for further evaluation and treatment. She was seen and evaluated in the ED by Neurology. CT was unremarkable. CTA showed M2 occlusion on the R. MRI could not be completed today.
At the time of my examination, patient has notable L facial droop. states that her symptoms have waxed and waned somewhat throughout the day.
She is not TNK or IAT candidate due to low NIH and time from initial symptoms.
Patient denies any prior h/o CVA. She does have history of [place] about 9 years ago.
She denies any recent changes in her medication regimen. No recent illnesses.
Medical History
Past Medical History
Past Medical History: Reports Other
Additional Past Medical History:
ASCVD
Hypertension
Dyslipidemia
Hypothyroidism
Obesity
Cardiomyopathy
Past Surgical History: Reports Other
Additional Past Surgical History:
PTCA with Stent
Bilateral Inguinal Herniorrhaphies
D&C
Social History
Tobacco: Non-smoker
Alcohol: None
Drug: None
Personal:
Living: With Family
Family History
Family History: Not pertinent
Allergies / Home Medications
Allergies reflects when Allergies were last updated in [employer].
Home Medications with original date entered in [employer]
Allergy/Medication List:
Allergies
Allergy/AdvReac Type Severity Reaction Status Date / Time
No Known Allergies Allergy Verified 07/02/24 14:49
Home Medications
aspirin 81 mg tablet,delayed release 81 mg PO DAILY ##0 04/16/15
metoprolol tartrate 50 mg tablet 50 mg PO BID ##60 04/16/15
nitroglycerin 0.4 mg sublingual tablet 0.4 mg sublingual [id number] PRN Chest Pain ##25 04/16/15
losartan 50 mg tablet 50 mg PO DAILY 05/20/22
pantoprazole 40 mg tablet,delayed release 40 mg PO DAILY 05/20/22
rosuvastatin 40 mg tablet 40 mg PO DAILY 05/04/24
hydrochlorothiazide 25 mg tablet 25 mg PO DAILY 07/29/24
levothyroxine 50 mcg tablet 50 mcg PO DAILY 07/29/24
Review of Systems
-
History Source: Patient
A 12 point ROS was completed and negative except as noted: Yes
Constitutional: Denies Fever or Chills
EENT: Denies Sore Throat
Respiratory: Denies Cough or Trouble Breathing
Cardiac: Denies Chest Pain or Palpitations
Abdomen/GI: Denies Abdominal Pain, Nausea, Vomiting or Diarrhea
: Denies Dysuria, Frequency or Flank Pain
Musculoskeletal: Denies Joint Pain or Edema
Neurological: Reports Weakness and Other (Slurred speech.); Denies Dizzy or Headache
Psych: Reports Anxiety
Physical Exam
Vital Signs
Vital Signs
Temp Pulse Resp BP Pulse Ox
98.9 F 101 24 153/81 95
07/29/24 11:30 07/29/24 19:47 07/29/24 19:47 07/29/24 19:47 07/29/24 14:51
Physical Exam
General: Other (58y F in no acute distress.)
HEENT: Moist mucous membranes and PERRLA
Respiratory: Clear; No Wheezes, Rales or Rhonchi
Cardiac: S1/S2 and Regular Rhythm; No Murmur
GI: Soft, Non Tender, Non Distended and Normal Bowel Sounds
Musculoskeletal: No Clubbing, No Cyanosis and No Edema
Neuro: AO x 3 and Other (L facial droop. Tongue extends to the L. Perhaps mild LUE weakness - but patient is R hand dominant. No LE weakness.)
Psych: No Agitated or Anxious
Laboratory Results
-
07/29/24 11:48
07/29/24 11:48
Laboratory Results
PT 12.4 Sec (11.4-14.6) 07/29/24 11:48
INR 0.90 07/29/24 11:48
APTT 22.3 Sec (23.4-35.0) L 07/29/24 11:48
Total Bilirubin 0.6 mg/dl (0.2-1.3) 07/29/24 11:48
AST 25 U/L (14-36) 07/29/24 11:48
ALT 20 U/L (0-35) 07/29/24 11:48
Alkaline Phosphatase 133 U/L (38-126) H 07/29/24 11:48
Troponin I < 0.012 ng/ml 07/29/24 11:48
Impression/Plan
-
A/P: Patient is a 58y F with PMH significant for ASCVD, HTN and dyslipidemia who presents to ED complaining of slurred speech and weakness since early this AM.
Acute CVA
- Admit to monitored bed for further evaluation and treatment.
- Patient with definite L facial droop at the time of my exam / minimal resultant dysarthria / ? LUE weakness.
- Seems to correlate with M2 occlusion seen on CTA.
- DAPT for now.
- MRI in AM.
- Neurology following for additional recommendations.
- Follow BP and adjust med regimen as needed for normotension at discharge.
- Continue statin therapy. Check A1C.
- PT / OT / Speech evaluations.
- Follow neurologic exam for any changes.
ASCVD
- No chest pain or dyspnea.
- Continue current CV med regimen including metoprolol, ASA, statin.
Benign Hypertension
- Allow a degree of permissive hypertension for initial 24 hours or so.
- Goal of normotension prior to discharge.
- Continue current meds with holding parameters.
Hypothyroidism
- Stable. Continue T4 supplementation.
Morbid Obesity due to excess calories
- Affects all aspects of care.
- Encourage healthy diet and increased activity with goal of weight loss.
DVT Prophylaxis: SCDs
Code Status: Full
--- NOTE | 2024-07-29 21:30 | PTCARENOTE ---
Pt arrived to [facility] from ED and ambulated with x1 assist from stretcher into bed. Pt is AAOx3, no complaints of pain at this time. VSS, pt oriented to room and call calderon within reach. Plan of care discussed with pt. Bed alarm in place d/t high
fall risk.
[2024-07-29 22:31] LABS: TSH Reflex To Free T4 3.65 uIU/ml (0.47-4.68)
[2024-07-29] MEDS: MELATONIN 5 MG PO (23:43)
[2024-07-30] VITALS (8 sets, daily range): BP systolic 120–147; BP diastolic 70–82; PULSE 63–79; O2SAT 95–98
[2024-07-30] MEDS: SYNTHROID 50 MCG PO (06:01)
--- NOTE | 2024-07-30 07:08 | W.PN.NEURO.1 ---
Today's Communication / Plan
-
.
Subjective/Objective
Subjective Data
Date of Service: July 30, 2024
Neurology Consultation Note.
HPI: This is a 58-year-old right-handed woman who presented to [facility] on 07/29/2024 with left hand clumsiness and change in speech.
Ms. Dey reports waking up at 9:30 AM with her her left hand 'was not cooperating'. She dropping a tissue and a pill. The patient's girlfriend noticed a change in her speech during phone conversation, which the patient describes as sounding 'like
marbles.' The patient denies any changes in left leg strength, vision, or sensation. She also denies balance issues or headaches. The patient has been compliant with her medications, including aspirin 81 mg and rosuvastatin 40 mg .
ER VS: 146/91-146/126, 89, afebrile.
EKG: NSR, QTc Int : 399 ms
Labs: LDL 129, VfA1l-8.8.
CTA head/neck-right M2 occlusion with no evidence of dissection.
Brain MRI without matthew (07/30/2024)�acute to subacute right MCA distribution infarct.
TTE(04/11/2015) apical thombus, EF 35%.
PMH: premature CAD, HTN, DLP, IGT, hypothyroidism, MATTHEW, BMI 42.5 on Zepbound
PSH:LAD PCI(2014), bilateral inguinal herniorrhaphy, D&C
SH: , works as a [employer]; non-smoker, no history excessive alcohol use
FH:mother-[place] at 49, brother-CABG at 50, sister from CAD in her 60s
All:NKDA
ROS: Constitutional: Negative. Negative for chills, fever and unexpected weight change.
HENT: Negative for ear pain, hearing loss, tinnitus and trouble swallowing.
Eyes: Negative. Negative for photophobia, pain and visual disturbance.
Respiratory: Negative for cough, choking and shortness of breath.
Cardiovascular: Negative for chest pain, palpitations and leg swelling.
Gastrointestinal: Negative for abdominal pain and vomiting.
Endocrine: Negative. Negative for cold intolerance.
Musculoskeletal: Positive for right knee pain
Skin: Negative for rash.
Allergic/Immunologic: Negative. Negative for immunocompromised state.
Neurological: Positive for left hand weakness, dysarthria
Psychiatric/Behavioral: Positive for anxiety
General: Well developed. In no acute distress.
Cardio: Regular rate and rhythm without murmur. Extremities are without cyanosis or edema.
Neuro:
Mental Status: Alert, oriented to person, place, and date. Normal attention and recall. Good fund of knowledge. Follows complex requests across the midline. Comprehension, naming, and repetition intact.
Cranial Nerves: Pupils are equally round and reactive to light. EOMs full. Visual rios full to confrontation. No ptosis. No nystagmus. V1-V3 intact to light touch and pinprick bilaterally, symmetric. Mild left facial weakness normal hearing
AU. The palate elevated well. SCMs and traps 5/5. Tongue midline. Mild lingual dysarthria.
Motor: Normal bulk and tone. No pronator or arm drift. Strength 5/5 throughout except for left deltoid, triceps and biceps 4 out of 5. No clonus.
Reflexes: 3+ in the right upper extremity. Limited right patellar reflex 2+ on the left. Saxena's�positive on the right
Sensory: Normal vibration at the toes.
Coordination: No dysmetria or tremor.
Gait: Normal stance, stride, limited arm swing exam.
Assessment and Plan:
I. Acute right MCA distribution stroke. Right M2 occlusion. Likely etiology�embolic vs intracranial large artery atherosclerosis.
II. History of apical marisolbus (2015)
III. DLP
-Continue Telemetry monitoring
-Avoid cerebral hypoperfusion
-TTE
-Continue aspirin 81 mg once a day and Plavix 75 mg QD for 21 days.
-Continue rosuvastatin 40 mg nightly
-LDL goal�less than 70.
-Lifestyle modification
-OP sleep study
-PT.
-Cardiology consult (Holter monitoring, TERESITA if TTE is unremarkable ILR)
-DVT prophylaxis.
-The case was discussed with patient's brother present at bedside
I personally reviewed all radiology and labs along with past medical records pertinent to current medical problems. Total time spent in patient care is 45 minutes.
Thank you for allowing us to participate in the care of this patient. We will continue to follow. Please do not hesitate to contact us with any questions or concerns.
Objective Data
Vital Signs
Temp Pulse Resp BP Pulse Ox
36.8 C 97 20 120/70 97
07/30/24 02:55 07/30/24 02:55 07/30/24 02:55 07/30/24 02:55 07/30/24 02:55
PT 12.4 Sec (11.4-14.6) 07/29/24 11:48
INR 0.90 07/29/24 11:48
APTT 22.3 Sec (23.4-35.0) L 07/29/24 11:48
Sodium 139 mmol/L (135-145) 07/29/24 11:48
Potassium 4.2 mmol/L (3.5-5.1) 07/29/24 11:48
BUN 17 mg/dl (7-17) 07/29/24 11:48
Glucose 100 mg/dl (70-99) H 07/29/24 11:48
Calcium 9.2 mg/dl (8.4-10.2) 07/29/24 11:48
LDL Cholesterol, Calc Cancelled 07/29/24 12:11
Patient Allergies
No Known Allergies Allergy (Verified 07/02/24 14:49)
Vital Signs and Labs
-
Vital Signs and Labs:
Vital Signs
Temp Pulse Resp BP Pulse Ox
36.8 C 91 20 139/82 97
07/30/24 07:44 07/30/24 09:43 07/30/24 07:44 07/30/24 09:43 07/30/24 07:44
Lab Results
07/30/24 07:52
07/30/24 07:52
PT 12.4 Sec (11.4-14.6) 07/29/24 11:48
INR 0.90 07/29/24 11:48
APTT 22.3 Sec (23.4-35.0) L 07/29/24 11:48
Sodium 141 mmol/L (135-145) 07/30/24 07:52
Potassium 3.9 mmol/L (3.5-5.1) 07/30/24 07:52
BUN 11 mg/dl (7-17) 07/30/24 07:52
Glucose 108 mg/dl (70-99) H 07/30/24 07:52
Calcium 9.0 mg/dl (8.4-10.2) 07/30/24 07:52
LDL Cholesterol, Calc Cancelled 07/29/24 12:11
Medications
-
Medications:
Generic Name Dose Route Start Last Admin
Trade Name Freq PRN Reason Stop Dose Admin
Acetaminophen 650 mg 07/29/24 21:26
Acetaminophen 325 Mg Tablet PO 08/26/24 21:25
Q4HPRN PRN
Mild Pain / Temp > 101
Aspirin 81 mg 07/30/24 08:00 07/30/24 09:43
Aspirin 81 Mg (Enteric Coated) Tablet PO 08/27/24 07:59 81 mg
DAILY ADEN Administration
Clopidogrel Bisulfate 75 mg 07/30/24 08:00 07/30/24 09:43
Clopidogrel 75 Mg Tablet PO 08/27/24 07:59 75 mg
DAILY ADEN Administration
Hydralazine HCl 5 mg 07/29/24 21:26
Hydralazine 20 Mg/Ml Vial IV 08/26/24 21:25
Q6HPRN PRN
SBP > 200
Levothyroxine Sodium 50 mcg 07/30/24 06:00 07/30/24 06:01
Levothyroxine 50 Mcg Tablet PO 08/27/24 05:59 50 mcg
DAILY@0600 ADEN Administration
Losartan Potassium 50 mg 07/30/24 08:00 07/30/24 09:43
Losartan 50 Mg Tablet PO 08/27/24 07:59 50 mg
DAILY ADEN Administration
Metoprolol Tartrate 50 mg 07/30/24 08:00 07/30/24 09:44
Metoprolol 50 Mg Regular Release Tablet PO 08/27/24 07:59 50 mg
BID ADEN Administration
Pantoprazole Sodium 40 mg 07/30/24 08:00 07/30/24 09:43
Pantoprazole 40 Mg Delayed Release Tablet PO 08/27/24 07:59 40 mg
DAILY ADEN Administration
Rosuvastatin Calcium 40 mg 07/30/24 08:00 07/30/24 09:43
Rosuvastatin (Crestor) 40 Mg Tablet PO 08/27/24 07:59 40 mg
DAILY ADEN Administration
Sodium Chloride 0 flush 07/29/24 22:00
Sodium Chloride 0.9% (Flush) Syringe IV 08/26/24 21:59
PER PROTOCOL ADEN
Home Medications
-
Home Medications
aspirin 81 mg tablet,delayed release 81 mg PO DAILY ##0 04/16/15
metoprolol tartrate 50 mg tablet 50 mg PO BID ##60 04/16/15
nitroglycerin 0.4 mg sublingual tablet 0.4 mg sublingual [id number] PRN Chest Pain ##25 04/16/15
losartan 50 mg tablet 50 mg PO DAILY Blood Pressure 05/20/22
pantoprazole 40 mg tablet,delayed release 40 mg PO DAILY Gastrointestinal Issue 05/20/22
rosuvastatin 40 mg tablet 40 mg PO DAILY High Cholesterol 05/04/24
hydrochlorothiazide 25 mg tablet 25 mg PO DAILY Fluid Retention/Swelling 07/29/24
levothyroxine 50 mcg tablet 50 mcg PO DAILY Thyroid 07/29/24
[2024-07-30 08:30] LABS: Hematocrit 39.1 % (37.0-47.0); Hemoglobin 12.6 g/dL (12.0-16.0); Mean Corp Hgb Conc. 32.2 g/dL (33.0-37.0); Mean Corpuscular Volume 83.7 fL (81.0-99.0); Mean Platelet Volume 10.5 fL (7.4-10.4); Platelet Count 222 10^3/uL (130-400); Red Blood Cell Count 4.67 10^6/uL (4.20-5.40); Red Cell Dist. Width 15.4 % (11.5-14.5); White Blood Cell Count 6.4 10^3/uL (4.8-10.8)
[2024-07-30 08:32] LABS: Glycohemoglobin (HgbA1c) 5.8 % (4.0-5.6)
[2024-07-30 08:59] LABS: Blood Urea Nitrogen 11 mg/dl (7-17); Carbon Dioxide 29 mmol/L (22-30); Chloride 104 mmol/L (98-107); Estimated Creatinine Clearance 114 ml/min; Glucose 108 mg/dl (70-99); Potassium 3.9 mmol/L (3.5-5.1); Sodium 141 mmol/L (135-145); eGFR > 60.00
--- NOTE | 2024-07-30 09:35 | W.PN.HOSP.TC ---
Today's Communication/Plan
-
DAPT and statins. Stroke w/u.
Assessment / Plan
Assessment / Plan
Physical exam:
General: Well Developed, Well Nourished and No Apparent Distress
HEENT: Normocephalic, Atraumatic and Moist Mucous Membranes
Respiratory: Clear to Auscultation; Negative Wheezes, Rales or Rhonchi
Cardiac: Regular Rhythm and S1/S2
GI: Soft, Nontender and Nondistended
Musculoskeletal: No Clubbing, No Cyanosis and No Edema
Neuro: Awake, Alert and Oriented, Left facial weakness, left upper extremity strength decreased, no sensory deficits, DT 2+.
Psych: Calm, normal judgement and insight
A/P:
Acute stroke:
Cont DAPT and statins
Neurology consult appreciated
Cardio consulted today for cardiac etiology of stroke-->plan for TERESITA and ILR in am
Reviewed MRI brain
PT OT SP eval
Discussed with family at bedside
HTN:
Usual HTN meds and allow permissive HTN
Hypothyroidism:
Thyroid replacement
Obesity:
Lifestyle changes modifications
DVT prophylaxis:
Lovenox SQ
Code status:
Full code
Total time spent on today's encounter was 52 minutes which included time spent in counseling the patient/family regarding diagnosis and treatment plan as listed above, goals of care, and symptom management. Case was discussed with nursing staff,
specialists, and care coordinators/case management. All labs and imaging personally reviewed by me. Remainder the time spent in detailed review of previous records, lab data, imaging, and other medical provider documentation.
Anticipated Discharge: 24 - 48 hours
Subjective/Interval History
-
Date of Service: July 30, 2024
Patient does have some improvement overall. Afebrile
Objective Data
-
Labs:
Laboratory Results
07/30/24
07:52
WBC 6.4
Hgb 12.6
Hct 39.1
Plt Count 222
Sodium 141
Potassium 3.9
Chloride 104
Carbon Dioxide 29
BUN 11
Creatinine 0.7
Glucose 108 H
Calcium 9.0
Vital Signs:
Vital Signs
Temp Pulse Resp BP Pulse Ox
98.2 F 91 20 139/82 97
07/30/24 07:44 07/30/24 07:44 07/30/24 07:44 07/30/24 07:44 07/30/24 07:44
[2024-07-30] MEDS: PROTONIX 40 MG PO (09:43)
[2024-07-30] MEDS: CRESTOR 40 MG PO (09:43)
[2024-07-30] MEDS: ASPIR LOW (ENTERIC COATED) 81 MG PO (09:43)
[2024-07-30] MEDS: COZAAR 50 MG PO (09:43)
[2024-07-30] MEDS: PLAVIX 75 MG PO (09:43)
[2024-07-30] MEDS: LOPRESSOR 50 MG PO ×2 (09:44→20:23)
--- NOTE | 2024-07-30 11:41 | CON.CAR ---
Consultation
Consultation Request
Date/Time Consultation Requested: 07/30/2024 11:40
Date/Time Consultation Performed: 07/30/2024 11:40
Requesting Provider: Dr. Stahl
Performing Provider: KARL Perez for Dr. Santos
Reason for Consultation: Cardiac etiology for CVA
Medical History
-
Chief Complaint: Slurred speech
History of Present Illness:
Pastora Dey is a 58-year-old female (known to Dr. Santos, her primary cardiology), CAD (STEMI, IRISH to mLAD 2015), ischemic cardiomyopathy, prior apical thrombus, hypertension, dyslipidemia, hypothyroidism, prediabetes and morbid obesity
presents with a chief complaint of slurred speech. She woke up at approximately 4 AM and felt her usual state of health. When she woke back up she again felt well then around 10:30 AM she noted slurred speech. She then felt clumsiness in her left
hand. She alerted her symptoms to her who noted a facial droop. She then presented to the emergency department. She did not have TNK or IAT due to low NIH. CT showed M2 occlusion. MRI showed moderate size nonhemorrhagic acute/subacute
right frontoparietal/subinsular region infarct. Cardiology was consulted. Neurology is also following.
Past Medical History
Past Medical History: CAD, CHF (ICM [recovered]), HTN, Hypercholesterolemia and Other (Prediabetes)
Past Surgical History: Gynecological
Social History
Tobacco: Non-Smoker
Alcohol: Occasional
Drug: None
Personal:
Living: With Family
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
Family History
Family History: Reviewed & Not Pertinent
Allergies / Home Medications
Allergy/AdvReac Type Severity Reaction Status Date / Time
No Known Allergies Allergy Verified 07/02/24 14:49
�Medication �Instructions �Recorded �Confirmed �Type
aspirin 81 mg tablet,delayed 81 mg PO DAILY ##0 04/16/15 07/29/24 Rx
release
metoprolol tartrate 50 mg tablet 50 mg PO BID ##60 04/16/15 07/29/24 Rx
nitroglycerin 0.4 mg sublingual 0.4 mg sublingual [id number] PRN 04/16/15 07/29/24 Rx
tablet Chest Pain ##25
losartan 50 mg tablet 50 mg PO DAILY Blood Pressure 05/20/22 07/29/24 History
pantoprazole 40 mg tablet,delayed 40 mg PO DAILY Gastrointestinal 05/20/22 07/29/24 History
release Issue
rosuvastatin 40 mg tablet 40 mg PO DAILY High Cholesterol 05/04/24 07/29/24 History
hydrochlorothiazide 25 mg tablet 25 mg PO DAILY Fluid 07/29/24 07/29/24 History
Retention/Swelling
levothyroxine 50 mcg tablet 50 mcg PO DAILY Thyroid 07/29/24 07/29/24 History
Review of Systems
-
History Source: Patient
All other systems: Negative unless noted
Constitutional: Fatigue
EENT: No Symptoms
Respiratory: No Symptoms
Cardiac: No Symptoms
Abdomen/GI: No Symptoms
: No Symptoms
Musculoskeletal: No Symptoms
Skin: No Symptoms
Neurological: Other (Slurred speech)
Endocrine: No Symptoms
Hematologic/Lymphatic: No Symptoms
Physical Exam
Vital Signs
Temp Pulse Resp BP Pulse Ox
98.1 F 83 18 120/77 98
07/30/24 11:06 07/30/24 11:06 07/30/24 11:06 07/30/24 11:06 07/30/24 11:06
Lab Results
07/30/24 07:52
07/30/24 07:52
Troponin I < 0.012 ng/ml 07/29/24 11:48
Physical Exam
General: Well Developed, Well Nourished, No Apparent Distress and Comfortable
HEENT: Normocephalic, Anicteric and Moist Mucous Membranes
Respiratory: Clear and Non Labored Respirations
Cardiac: S1/S2 and Regular Rhythm; Negative Peripheral Edema
Breast: Deferred by me
GI: Soft, Non Tender, Non Distended and Normal Bowel Sounds
Rectal: Deferred by Provider
Genito-urinary: No Costovertebral Tender
Musculoskeletal: No Clubbing, No Cyanosis and No Edema
Skin: Warm and Dry
Neuro: AO x 3
Hematologic/Lymphatic: No Lymphadenopathy
Psych: Calm
Impression / Plan
-
IMPRESSION/PLAN: 58F with CAD (STEMI, 2014), ischemic cardiomyopathy, prior apical thrombus, hypertension, dyslipidemia, hypothyroidism, prediabetes and morbid obesity presents with CVA
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 Santos
CVA
-Onset 07/29/2024 at approximately 10:30 AM
-MRI: Moderate size nonhemorrhagic acute/subacute right frontoparietal/subinsular infarct
-On ASA 81 mg daily ETHICAL HACKER, now on DAPT
-Echocardiogram today, TTE tomorrow with possible ILR post TERESITA
-Telemetry stable
CAD
-On aspirin and statin
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
-Chest pain-free
-She should be on a cholesterol lowing diet, orders updated
Ischemic cardiomyopathy - recovered
Hypertension
-BP stable, continue current medical therapy
Hyperlipidemia
-TC 220, LDL 129, HDL 66, TG 129 on rosuvastatin 40 mg
-Goal LDL <55, PCSK9 in the outpatient setting
Prior apical thrombus with ICM, 2014
Prediabetes, HgbA1c 5.8%
Heavy snoring, probable ALVA, she is agreeable to outpatient sleep study
Obesity, BMI 42, she would benefit from weight loss, can consider GLP-1 by her PCP after discharge
Data Reviewed
-
EKG: Report Reviewed by me
CT Scan: Report Reviewed by me
MRI: Report Reviewed by me
Labs: Labs Reviewed by me
Old Records: Reviewed
--- NOTE | 2024-07-30 14:22 | PTOTSP ---
Speech Therapy Evaluation:
Pt presents with oropharyngeal swallow that is grossly WFL. Immediate cough noted in 1/6 trials of thin liquids via straw, however no prior or subsequent s/sx of aspiration across trials of thin liquids or regular solids. Pt passed 3oz swallow
screen. WBC WNL. No CXR completed this admission. Pt remains at risk of aspiration and related complications given acute R CVA. JOB LITHOGRAPHER to continue to follow.
Recommend:
1. Continue IDDSI Level 7 (regular) solids and thin liquids
2. Medications whole with thin liquids
3. General aspiration/reflux precautions
4. JOB LITHOGRAPHER to follow pending hospitalization - likely brief
--- NOTE | 2024-07-30 15:15 | CARDSERVLU ---
Echocardiogram with [facility] completed after protocol screening completed. Allergies verified.
Patent IV site: _left AC___
IV site flushed with 0.9% NaCl pre and post administration.
Diluted bolus method utilized to enhance visualization of ventricular kebede.
Total volume given: _5.0___ mL
Patient tolerated all procedures well without complications.
--- NOTE | 2024-07-30 16:36 | CM ---
campaign management senior manager reviewed patient's chart and met with patient and patient lives with spouse in a multilevel home, patient is independent with adl's and ambulation, no dme, patient drives.
PCP: Dr. Sood
Pharmacy: [facility].
Plan; Home with spouse when stable.
[2024-07-30] MEDS: LOVENOX 40 MG SC (17:41)
[2024-07-30 18:40] LABS: Hepatitis C Antibody Negative (Negative)
[2024-07-30] MEDS: AMBIEN 5 MG PO (20:25)
[2024-07-31 03:07] VITALS: BP 131/83
[2024-07-31] MEDS: SYNTHROID 50 MCG PO (05:11)
[2024-07-31 07:53] VITALS: BP 126/78
[2024-07-31 08:37] LABS: Hematocrit 38.1 % (37.0-47.0); Hemoglobin 11.9 g/dL (12.0-16.0); Mean Corp Hgb Conc. 31.2 g/dL (33.0-37.0); Mean Corpuscular Hgb 26.3 pg (27.0-31.0); Mean Corpuscular Volume 84.1 fL (81.0-99.0); Mean Platelet Volume 10.5 fL (7.4-10.4); Platelet Count 197 10^3/uL (130-400); Red Blood Cell Count 4.53 10^6/uL (4.20-5.40); Red Cell Dist. Width 15.6 % (11.5-14.5)
[2024-07-31] MEDS: PROTONIX 40 MG PO (08:39)
[2024-07-31] MEDS: ASPIR LOW (ENTERIC COATED) 81 MG PO (08:39)
[2024-07-31] MEDS: COZAAR 50 MG PO (08:39)
[2024-07-31] MEDS: PLAVIX 75 MG PO (08:39)
[2024-07-31] MEDS: LOPRESSOR 50 MG PO (08:39)
[2024-07-31] MEDS: CRESTOR 40 MG PO (08:39)
[2024-07-31 09:03] LABS: Blood Urea Nitrogen 14 mg/dl (7-17); Calcium 8.6 mg/dl (8.4-10.2); Carbon Dioxide 27 mmol/L (22-30); Chloride 107 mmol/L (98-107); Estimated Creatinine Clearance 114 ml/min; Glucose 97 mg/dl (70-99); Potassium 4.2 mmol/L (3.5-5.1); Sodium 141 mmol/L (135-145); eGFR > 60.00
[2024-07-31 10:57] VITALS: BP 148/88
--- NOTE | 2024-07-31 11:07 | W.PN.NEURO.1 ---
Today's Communication / Plan
-
.
Neuro Assessment/Plan
Assessment
Acute onset of bilateral hand dysfunction and sensation change with slurred speech
Most likely secondary to panic due to the recurrence of the event and bilateral nature of symptomatology
Differential diagnosis includes acute ischemic injury only suggested by the patient's slurred speech and the patient's prior history of myocardial infarction
CTA of the head was read as possible right M2 occlusion which is not clinically suggested
CT of head was unremarkable
Patient was not a candidate for either tenecteplase or IAT due to NIH stroke scale less than 6
Plan
Check MRI of brain for completeness
Continue patient's aspirin without addition of clopidogrel unless there is evidence of an acute ischemic injury
Psychological therapy as outpatient including cognitive behavioral therapy
Continue rosuvastatin 40 mg daily especially in light of the patient's LDL greater than 70
Not clear patient would benefit from rehabilitation evaluation or treatment
Provide medical educational materials for stroke
Goal of normotension
Continue current medications
Will follow pending results
Subjective/Objective
Subjective Data
Date of Service: July 31, 2024
Neurology follow-up note
Ms. Dey reports improvement of her left hand clumsiness. No reports of headaches, change in vision or sensation.
TTE(07/30/2024)-EF 60%, Interatrial septum is intact with no evidence of shunting by color flow Doppler. No intracardiac mass or thrombus formation seen.
TERESITA-pending.
Labs: LDL 129, ApW6v-9.8. Platelets(07/31/24)�197.
CTA head/neck-right M2 occlusion with no evidence of dissection.
Brain MRI without jocelynn (07/30/2024)�acute to subacute right MCA distribution infarct.
TTE(04/11/2015) apical thrombus, EF 35%.
PMH: premature CAD, HTN, DLP, IGT, hypothyroidism, JOCELYNN, BMI 42.5 on Zepbound
PSH:LAD PCI(2014), bilateral inguinal herniorrhaphy, D&C
SH: , works as a [employer]; non-smoker, no history excessive alcohol use
FH:mother-[place] at 49, brother-CABG at 50, sister from CAD in her 60s
All:NKDA
ROS: Constitutional: Negative. Negative for chills, fever and unexpected weight change.
HENT: Negative for ear pain, hearing loss, tinnitus and trouble swallowing.
Eyes: Negative. Negative for photophobia, pain and visual disturbance.
Respiratory: Negative for cough, choking and shortness of breath.
Cardiovascular: Negative for chest pain, palpitations and leg swelling.
Gastrointestinal: Negative for abdominal pain and vomiting.
Endocrine: Negative. Negative for cold intolerance.
Musculoskeletal: Positive for right knee pain
Skin: Negative for rash.
Allergic/Immunologic: Negative. Negative for immunocompromised state.
Neurological: Negative for headache, change in strength
General: Well developed. In no acute distress.
Cardio: Regular rate and rhythm without murmur. Extremities are without cyanosis or edema.
Neuro:
Mental Status: Alert, oriented to person, place, and date. Normal attention and recall. Good fund of knowledge. Follows complex requests across the midline. Comprehension, naming, and repetition intact.
Cranial Nerves: Pupils are equally round and reactive to light. EOMs full. Visual rios full to confrontation. No ptosis. No nystagmus. V1-V3 intact to light touch and pinprick bilaterally, symmetric. Mild NLF flattening, normal hearing AU.
The palate elevated well. SCMs and traps 5/5. Tongue midline. No dysarthria.
Motor: Normal bulk and tone. No pronator or arm drift. Strength 5/5 throughout except for left deltoid, triceps and biceps 4 out of 5. No clonus.
Coordination: No dysmetria or tremor.
Gait: deferred
Assessment and Plan:
I. Acute right MCA distribution stroke. Right M2 occlusion. Likely etiology�embolic vs intracranial large artery atherosclerosis.
II. Premature coronary artery disease.
III. DLP
-Continue Telemetry monitoring
-Will follow-up TERESITA results
-Holter/ILR
-Continue aspirin 81 mg once a day and Plavix 75 mg QD for 21 days with platelet count monitoring
-Continue rosuvastatin 40 mg nightly
-LDL goal�less than 70.
-Lifestyle modification
-Outpatient sleep study, neurology under cardiology follow-up
I personally reviewed all radiology and labs along with past medical records pertinent to current medical problems. Total time spent in patient care is 43 minutes.
Thank you for allowing us to participate in the care of this patient. Please do not hesitate to contact us with any questions or concerns
Objective Data
Vital Signs
Temp Pulse Resp BP Pulse Ox
36.3 C 74 18 148/88 98
07/31/24 10:57 07/31/24 10:57 07/31/24 10:57 07/31/24 10:57 07/31/24 10:57
Lab Results
07/31/24 07:54
07/31/24 07:54
PT 12.4 Sec (11.4-14.6) 07/29/24 11:48
INR 0.90 07/29/24 11:48
APTT 22.3 Sec (23.4-35.0) L 07/29/24 11:48
Sodium 141 mmol/L (135-145) 07/31/24 07:54
Potassium 4.2 mmol/L (3.5-5.1) 07/31/24 07:54
BUN 14 mg/dl (7-17) 07/31/24 07:54
Glucose 97 mg/dl (70-99) 07/31/24 07:54
Calcium 8.6 mg/dl (8.4-10.2) 07/31/24 07:54
LDL Cholesterol, Calc Cancelled 07/29/24 12:11
Patient Allergies
No Known Allergies Allergy (Verified 07/02/24 14:49)
Vital Signs and Labs
-
Vital Signs and Labs:
Vital Signs
Temp Pulse Resp BP Pulse Ox
36.3 C 74 18 148/88 98
07/31/24 10:57 07/31/24 10:57 07/31/24 10:57 07/31/24 10:57 07/31/24 10:57
Lab Results
07/31/24 07:54
07/31/24 07:54
PT 12.4 Sec (11.4-14.6) 07/29/24 11:48
INR 0.90 07/29/24 11:48
APTT 22.3 Sec (23.4-35.0) L 07/29/24 11:48
Sodium 141 mmol/L (135-145) 07/31/24 07:54
Potassium 4.2 mmol/L (3.5-5.1) 07/31/24 07:54
BUN 14 mg/dl (7-17) 07/31/24 07:54
Glucose 97 mg/dl (70-99) 07/31/24 07:54
Calcium 8.6 mg/dl (8.4-10.2) 07/31/24 07:54
LDL Cholesterol, Calc Cancelled 07/29/24 12:11
Medications
-
Medications:
Generic Name Dose Route Start Last Admin
Trade Name Freq PRN Reason Stop Dose Admin
Acetaminophen 650 mg 07/29/24 21:26
Acetaminophen 325 Mg Tablet PO 08/26/24 21:25
Q4HPRN PRN
Mild Pain / Temp > 101
Aspirin 81 mg 07/30/24 08:00 07/31/24 08:39
Aspirin 81 Mg (Enteric Coated) Tablet PO 08/27/24 07:59 81 mg
DAILY ADEN Administration
Clopidogrel Bisulfate 75 mg 07/30/24 08:00 07/31/24 08:39
Clopidogrel 75 Mg Tablet PO 08/27/24 07:59 75 mg
DAILY ADEN Administration
Enoxaparin Sodium 40 mg 07/30/24 18:00 07/30/24 17:41
Enoxaparin Sodium 40 Mg/0.4 Ml Syringe SC 08/27/24 17:59 40 mg
QPM ADEN Administration
Hydralazine HCl 5 mg 07/29/24 21:26
Hydralazine 20 Mg/Ml Vial IV 08/26/24 21:25
Q6HPRN PRN
SBP > 200
Levothyroxine Sodium 50 mcg 07/30/24 06:00 07/31/24 05:11
Levothyroxine 50 Mcg Tablet PO 08/27/24 05:59 50 mcg
DAILY@0600 ADEN Administration
Losartan Potassium 50 mg 07/30/24 08:00 07/31/24 08:39
Losartan 50 Mg Tablet PO 08/27/24 07:59 50 mg
DAILY ADEN Administration
Metoprolol Tartrate 50 mg 07/30/24 08:00 07/31/24 08:39
Metoprolol 50 Mg Regular Release Tablet PO 08/27/24 07:59 50 mg
BID ADEN Administration
Pantoprazole Sodium 40 mg 07/30/24 08:00 07/31/24 08:39
Pantoprazole 40 Mg Delayed Release Tablet PO 08/27/24 07:59 40 mg
DAILY ADEN Administration
Rosuvastatin Calcium 40 mg 07/30/24 08:00 07/31/24 08:39
Rosuvastatin (Crestor) 40 Mg Tablet PO 08/27/24 07:59 40 mg
DAILY ADEN Administration
Sodium Chloride 0 flush 07/29/24 22:00
Sodium Chloride 0.9% (Flush) Syringe IV 08/26/24 21:59
PER PROTOCOL ADEN
Zolpidem Tartrate 5 mg 07/30/24 22:00 07/30/24 20:25
Zolpidem Tartrate 5 Mg Tablet PO 08/27/24 21:59 5 mg
HS ADEN Administration
Home Medications
-
Home Medications
aspirin 81 mg tablet,delayed release 81 mg PO DAILY ##0 04/16/15
metoprolol tartrate 50 mg tablet 50 mg PO BID ##60 04/16/15
nitroglycerin 0.4 mg sublingual tablet 0.4 mg sublingual [id number] PRN Chest Pain ##25 04/16/15
losartan 50 mg tablet 50 mg PO DAILY Blood Pressure 05/20/22
pantoprazole 40 mg tablet,delayed release 40 mg PO DAILY Gastrointestinal Issue 05/20/22
rosuvastatin 40 mg tablet 40 mg PO DAILY High Cholesterol 05/04/24
hydrochlorothiazide 25 mg tablet 25 mg PO DAILY Fluid Retention/Swelling 07/29/24
levothyroxine 50 mcg tablet 50 mcg PO DAILY Thyroid 07/29/24
--- NOTE | 2024-07-31 12:17 | W.PN.UPDATE ---
Update Note
Progress Note Update
07/31/24 TERESITA: EF 60%, mild LVH, no LA appendage thrombus, normal intraatrial septum.
Proceed with Linq
--- NOTE | 2024-07-31 14:43 | W.PN.CD ---
Today's Communication / Plan
-
- TERESITA / ILR today
Impression / Plan
-
IMPRESSION/PLAN: 58F with CAD (STEMI, 2014), ischemic cardiomyopathy, prior apical thrombus, hypertension, dyslipidemia, hypothyroidism, prediabetes and morbid obesity presents with CVA
Primary policewoman: Formerly Dr. Crain, now Dr. Santos
CVA
-Onset 07/29/2024 at approximately 10:30 AM
-MRI: Moderate size nonhemorrhagic acute/subacute right frontoparietal/subinsular infarct
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
-Echocardiogram 07/30/24 - Normal LV size and function with apical hypokinesis. LVEF is 60% - Compared to prior from December 07, 2022, no significant change.
-TERESITA today with possible ILR post TERESITA
-Telemetry stable
CAD
-On aspirin and statin
-2015: STEMI with balloon and stenting of the mLAD, FOREST PATROLMAN of RCA with right to right and [id number]-vd-[id number] collaterals
-Chest pain-free
- on a cholesterol lowing diet
Ischemic cardiomyopathy - recovered
Hypertension
-BP stable, continue current medical therapy
Hyperlipidemia
-TC 220, LDL 129, HDL 66, TG 129 on rosuvastatin 40 mg
-Goal LDL <55, PCSK9 in the outpatient setting
Prior apical thrombus with ICM, 2015
Prediabetes, HgbA1c 5.8%
Heavy snoring, probable ALVA, she is agreeable to outpatient sleep study
Obesity, BMI 42, she would benefit from weight loss, can consider GLP-1 by her PCP after discharge
Physical Exam
Vital Signs/Labs
Vital Signs
Temp Pulse Resp BP Pulse Ox
97.4 F 74 18 148/88 98
07/31/24 10:57 07/31/24 10:57 07/31/24 10:57 07/31/24 10:57 07/31/24 10:57
07/30/24 07/31/24 08/01/24
06:59 06:59 06:59
Actual Weight 119.476 kg
07/31/24 07:54
07/31/24 07:54
PT 12.4 Sec (11.4-14.6) 07/29/24 11:48
INR 0.90 07/29/24 11:48
APTT 22.3 Sec (23.4-35.0) L 07/29/24 11:48
Triglycerides Cancelled 07/29/24 12:11
LDL Cholesterol, Calc Cancelled 07/29/24 12:11
VLDL Cholesterol, Calc Cancelled 07/29/24 12:11
HDL Cholesterol Cancelled 07/29/24 12:11
LAB Results
07/29/24
11:48
Troponin I < 0.012
Physical Exam
Constitutional: No acute distress and Comfortable
EENT: Anicteric and Moist mucous membranes
Cardiovascular: Rhythm & rate is regular, Pedal edema is absent and JVD pressure is normal
Respiratory: Respiratory effort normal, Lungs clear to auscul., Wheeze Absent and Crackles Absent
GI: Soft, Non tender and Normal bowel sounds
Neuro/Psych: Alert, Oriented and AO x 3
Data Reviewed
-
Date of Service: July 31, 2024
Medical Decision Making: Reviewed Test Results, Independent Historian Assessment, Test Interpretation and Review of Case with other Provider
EKG: Tracing Personally Visualized and interpreted
Echo: Report Reviewed by me
Labs: Labs Reviewed by me
Old Records: Reviewed
--- NOTE | 2024-07-31 14:46 | ITS.CL.IMPLP ---
Tool And Die Repairer - Implant Loop
Implant Loop
Procedure Report:
Procedure: Insertion of Loop Recorder.�
Date of the procedure: 07/31/2024
Procedure Physician: Evelyne Greer MD [facility]
Indication: Cryptogenic stroke
Description of the procedure:
Patient was brought to the holding area after informed consent was obtained from the patient. The time-out was performed immediately before the procedure.
The left parasternal chest area was prepped and draped in sterile fashion with chlorhexidine prep x 3 times. Lidocaine 1% was injected subcutaneously for local anesthesia. The loop recorder was tunneled and then injected into the subcutaneous
tissue. The tunneling tool was removed leaving the loop recorder in place. The dermis was closed with 4-0 monocryl and steristrips and a pressure Tegaderm dressing was placed. There were no immediate complications.
Post procedure, the device was interrogated and showed good detectable P and R waves.
There were no immediate complications.
Device:
LINQII; Model: LNQ22; Serial #:[id number]
R wave amplitude: 0.21 mV
Final Programming:
��������������� Tachycardia Detection: >182 bpm for 16 beats
��������������� Bradycardia Detection: 30 bpm for 12 beats, Asystole for 5 seconds.
��������������� Atrial fibrillation detection: On with > 10 min duration
Conclusion:
Successful insertion of loop recorder.
Recommendation:
Routine post-insert loop care.
[2024-07-31 15:40] VITALS: BP 146/82
--- NOTE | 2024-07-31 15:59 | W.PN.HOSP.TC ---
Today's Communication/Plan
-
ILR and TERESITA. D/C planning today
Assessment / Plan
Assessment / Plan
Physical exam:
General: Well Developed, Well Nourished and No Apparent Distress
HEENT: Normocephalic, Atraumatic and Moist Mucous Membranes
Respiratory: Clear to Auscultation; Negative Wheezes, Rales or Rhonchi
Cardiac: Regular Rhythm and S1/S2
GI: Soft, Nontender and Nondistended
Musculoskeletal: No Clubbing, No Cyanosis and No Edema
Neuro: Awake, Alert and Oriented, improving left facial weakness and left upper extremity strength decreased, no sensory deficits, DT 2+.
Psych: Calm, normal judgement and insight
A/P:
Acute stroke:
Cont DAPT and statins
Neurology consult appreciated
Cardio consulted today for cardiac etiology of stroke--> status post TERESITA and no intracardiac thrombus and ILR implanted today
Reviewed MRI brain
PT OT SP eval
Discussed with family at bedside
Plan to discharge today
HTN:
Usual HTN meds and allow permissive HTN
Hypothyroidism:
Thyroid replacement
Obesity:
Lifestyle changes modifications
DVT prophylaxis:
Lovenox SQ
Code status:
Full code
Anticipated Discharge: Today
Subjective/Interval History
-
Date of Service: July 31, 2024
feels better, no slurred speech or worsening weakness
Objective Data
-
Labs:
Laboratory Results
07/31/24
07:54
WBC 5.0
Hgb 11.9 L
Hct 38.1
Plt Count 197
Sodium 141
Potassium 4.2
Chloride 107
Carbon Dioxide 27
BUN 14
Creatinine 0.7
Glucose 97
Calcium 8.6
Vital Signs:
Vital Signs
Temp Pulse Resp BP Pulse Ox
97.4 F 73 20 146/82 97
07/31/24 15:40 07/31/24 15:40 07/31/24 15:40 07/31/24 15:40 07/31/24 15:40
I&O
07/30/24 07/31/24 08/01/24
06:59 06:59 06:59
Intake Total 480 / 480 1560 / 1560
Balance 480 / 480 1560 / 1560
[2024-07-31 16:10] VITALS: BP 145/82
--- NOTE | 2024-07-31 16:15 | W.DCSUMMARY ---
Discharge Summary
Discharge Data
Date of Admission: 07/29/24
Date of Discharge: 07/31/24
-
Pending Results: No
Hospital Course
Patient 58 years old female presented with sudden onset of neurological deficit consistent with acute stroke. Neurology consulted. Brain MRI confirmed acute/subacute left frontoparietal and subinsular region infarct. She was treated with dual
antiplatelet therapy aspirin and Plavix and continue with her statins. She participated with PT and OT and speech pathology. Cardiology was consulted and she had a transthoracic echocardiogram and transesophageal echocardiogram with no evidence of
intracardiac thrombus. She also had an insertion of loop recorder to look for cardiac etiology of her stroke. Otherwise, patient is hemodynamically stable and feels improved. We discussed with neurology who cleared her for discharge today. She
will be discharged in stable condition today.
Discharge duration: 35 minutes
Discharge Plan
-
Patient Disposition: Home with Home Care
Discharge Diagnosis/Procedures: Acute stroke. Status post 07/31 transesophageal echo cardiac and Linq loop recorder implant. Hypertension. Hyperlipidemia.
Diet: Low Cholesterol
Activity: As tolerated
Bathing Restrictions: After dressing removed
Blood Work: PCP to order CBC, BMP within 1 week
Stand Alone Forms: DC Inst - Implanted Device
Referrals:
Oswaldo Jones MD [Active] - in two to four weeks
Rakan Santos MD [Active] - 08/15/24 10:00 am (Incision check appointment)
Juanjose Sood DO [Family Provider] - in less than 1 week
Prescriptions:
New
clopidogrel 75 mg Tablet
75 mg PO DAILY 21 Days Qty: 21 0RF
Continued
aspirin 81 MG tablet,delayed release (DR/EC)
81 mg PO DAILY Qty: 0 0RF
metoprolol tartrate 50 MG tablet
50 mg PO BID Qty: 60 3RF
nitroglycerin 0.4 MG tablet, sublingual
0.4 mg sublingual [id number] PRN (Reason: Chest Pain ) Qty: 25 3RF
losartan 50 mg Tablet
50 mg PO DAILY
pantoprazole 40 MG tablet,delayed release (DR/EC)
40 mg PO DAILY
rosuvastatin 40 mg Tablet
40 mg PO DAILY
levothyroxine 50 mcg Tablet
50 mcg PO DAILY
hydrochlorothiazide 25 mg Tablet
25 mg PO DAILY
Discharge Orders:
Discharge Patient (As Directed); Ordered 07/31/24
Ordered By: Norbert Stahl
Discharge Date and Time
Print Language: MACEDONIAN
[2024-07-31 17:10] VITALS: BP 165/98
--- NOTE | 2024-07-31 17:10 | PTCARENOTE ---
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 VS stable. Noted Linq recorder device placed on left side of chest, 4x4 and tegaderm dry and intact.
1630 Linq site checked every 15 minutes x 4, dressing remain dry and intact. Dr. Stahl here to see pt at bedside, pt will be discharge to home today.
1700 Dressing checked remain dry and intact, no drainage noted.
[2024-08-01 18:30] LABS: Homocysteine 13 umol/L (0-15)
== END 2024-07-31 17:15 | disposition home or self-care (01) | DRG 41 ==
LOC: 4 WEST ACU 20:38
PROVIDERS: Internal Medicine Cardiovascular Disease; Psychiatry & Neurology Neurology; ADMITTING PHYSICIAN Hospitalist; ATTENDING PHYSICIAN Hospitalist; CONSULT PHYSICIAN Internal Medicine Cardiovascular Disease; CONSULT PHYSICIAN Psychiatry & Neurology Neurology; EMERGENCY PHYSICIAN Emergency Medicine; FAMILY PHYSICIAN Family Medicine
PROC: 0JH632Z Insertion of Monitoring Device into Chest Subcutaneous Tissue and Fascia, Percutaneous Approach (ICD-10-PCS; 2024-07-31)
PROC: B24BZZ4 Ultrasonography of Heart with Aorta, Transesophageal (ICD-10-PCS; 2024-07-31)
DX: I63.511 Cerebral infarction due to unspecified occlusion or stenosis of right middle cerebral artery (principal); Z68.41 Body mass index [BMI] 40.0-44.9, adult; I25.10 Atherosclerotic heart disease of native coronary artery without angina pectoris; I10 Essential (primary) hypertension; E03.9 Hypothyroidism, unspecified; I25.5 Ischemic cardiomyopathy; R29.810 Facial weakness; R47.81 Slurred speech; R73.03 Prediabetes; M25.561 Pain in right knee; I25.2 Old myocardial infarction; R29.700 NIHSS score 0; E66.01 Morbid (severe) obesity due to excess calories; E78.00 Pure hypercholesterolemia, unspecified; K21.9 Gastro-esophageal reflux disease without esophagitis; Z95.5 Presence of coronary angioplasty implant and graft; Z79.899 Other long term (current) drug therapy; Z79.890 Hormone replacement therapy; Z79.82 Long term (current) use of aspirin
CPT/HCPCS: 33285; 70450; 70496; 70498; 70551; 73564; 80048; 80053; 80061; 83036; 83090; 84443; 84484; 85025; 85027; 85610; 85730; 86803; 92610; 93005; 93306; 93312; 93320; 93325; 96372; 97163; 97167; 99285; C1764; Q9950; Q9967

== ENCOUNTER 2024-08-04 11:36 | Emergency (ER) | payer OTHER, SELFPAY ==
[2024-08-04 11:49] VITALS: BP 117/58
--- NOTE | 2024-08-04 13:21 | ED.GENMED ---
History of Present Illness
General
Chief Complaint: Head Injury
Source: patient
Exam Limitations: none
Time Seen by Provider: 08/04/24 13:13
Nursing documentation reviewed up to this point in time: agreed with
History of Present Illness
History of Present Illness:
This is a 58-year-old female with past medical history of coronary artery disease, CVA hypertension, hyperlipidemia presents to the emergency department today with concerns of frontal head pain following a fall. Patient reports that she has had a
cough and cold like symptoms the past few days and she was in the bathroom today when she stood up from the toilet and started to feel dizzy, lightheaded, and felt flushed. She did have transient blurry vision as well. This caused her to have a
presyncopal episode and fall forward into her bathroom sink and then subsequently fell to the ground. Patient states that she did not lose consciousness. Patient started to get up and alerted her who helped her up. Of note, patient was
recently hospitalized here for CVA and has a loop recorder in place to monitor for arrhythmias however it has not been fully set up yet. Patient follows with [facility] cardiology.
Past History
Past History
ED Past Medical History: CAD, GERD, HTN, Hypercholesterolemia, PR, Hypothyroidism and Other (Morbid obesity, cardiomyopathy)
ED Past Surgical History: Cardiac (Stent), Gynecological (Uterine polyp removed, D&C 2022) and Other (Herniated disc, inguinal herniorrhaphy bilaterally 2023)
Social History
Tobacco: Non-smoker
Alcohol: Occasional
Drug: None
Personal:
Living: with family
Employment: Employed
Family History
Family History: CAD
Review of Systems
Review of Systems
All Other Systems: ROS reviewed and negative except as documented in HPI and ROS
Phy Exam
Physical Exam
Physical Exam:
General: Patient is well appearing and in no acute distress; non-toxic
Skin: Warm and dry, no rashes or lesions
Head: Frontal scalp hematoma noted with small overlying abrasion, TMJ joints intact bilaterally, no tenderness to palpation of the facial bones
Eyes: Sclera non-icteric. EOMs intact.
Neck: No tenderness to palpation of the cervical spine, patient seen spontaneously moving cervical spine
Cardiac: Regular rate and rhythm, no murmurs
Peripheral Vascular: No lower extremity swelling or edema
Pulm: Normal respiratory effort, no wheezes, rales, or rhonchi
Abdomen: No abdominal tenderness to palpation
Musculoskeletal: 5/5 strength in b/l upper extremities
Neuro: CN II-XII intact, no focal neurologic deficits.
Psychiatric: Appropriate mood and affect.
Course
Orders/Labs/Results
Orders:
Orders
08/04/24 12:[address] [CT Head W/o Iv Contrast] Urgent
Comment:
Reason For Exam: fall, recent stroke
08/04/24 13:37
Electrocardiogram (*1) Urgent
Reason for Study: Syncope
EKG- Treatment ONCE
08/04/24 13:39
pacemaker [Interrogate Pacemaker- Treatment] ONCE
08/04/24 13:44
Interrogate Pacemaker- Treatment ONCE
0.9% Sodium Chloride 1000 ml [Nss] 1,000 ml IV BOLUS
08/04/24 14:00
Complete Blood Count/With Diff Urgent
Comprehensive Metabolic Panel Urgent
Abnormal Lab Results
08/04/24
14:00
MCH 26.3 L pg
(27.0-31.0)
MCHC 31.7 L g/dL
(33.0-37.0)
RDW 15.9 H %
(11.5-14.5)
Absolute Lymphs (auto) 0.3 L 10^3/uL
(1.2-3.4)
Neutrophils % 86.9 H %
(42.2-75.2)
Lymphocytes % 5.1 L %
(20.5-51.1)
Potassium 3.4 L mmol/L
(3.5-5.1)
Alkaline Phosphatase 127 H U/L
(38-126)
08/04/24 14:00
08/04/24 14:00
Vital Signs
Initial and Last Documented VS:
Initial Vital Signs
Temp Pulse Resp BP Pulse Ox
98.6 F 86 16 117/58 98
08/04/24 11:49 08/04/24 11:49 08/04/24 11:49 08/04/24 11:49 08/04/24 11:49
Last Documented Vital Signs
Temp Pulse Resp BP Pulse Ox
98.6 F 76 18 128/76 98
08/04/24 11:49 08/04/24 16:00 08/04/24 16:00 08/04/24 16:00 08/04/24 16:00
MDM/Problems Addressed
Differential Diagnosis Includes:
tension headache, abrasion, hematoma, subdural hematoma, epidural hematoma, concussion, vasovagal pre-syncope
MDM/Problems Addressed:
58-year-old female with past medical history of coronary artery disease, hypertension, hyperlipidemia, CVA presents emergency department today with concerns of presyncopal episode at home that caused her to trip and fall and hit her head. Of note,
patient was discharge on Tuesday for stroke and was started on antiplatelet agents. She states that she felt flushed and lightheaded and will bit dizzy before she fell. She is currently asymptomatic. On physical exam she does have a frontal
scalp hematoma with overlying abrasion. She has no focal neurologic deficits however and she is no midline cervical spinal tenderness. She went for a CAT scan of the head which showed a small subacute right sided infarct consistent and stable from
prior MRI and showed mild scalp soft tissue swelling. I did speak to Dr. Shirley Doss on-call for CBC he states that the loop recorder is not able to be interrogated at this time as it is unlikely that everything has been set up for her at home in
terms of in office monitoring. C considering patient onsidering has normal EKG with normal sinus rhythm, no concern for cardiac etiology patient's symptoms at this time, not feel that patient needs telemetry monitoring at this time. Patient stable
for discharge. Discussed case with my attending. Discussed cardiology follow-up.
Chronic conditions affecting care:
CVA, HTN, HLP
*Pulse Oximetry
Patient hypoxic: no
*EKG
Interpreted by ED Provider?: Yes
EKG Intrepretation Date: 08/04/24
Interpretation: normal
Comparison EKG: no changes
Heart Rate: 75
Rate: normal
Rhythm: sinus
*Critical Care Note
Total Time (30-74mins, 75-104mins- exclusive of procedures): Not Applicable
Data Reviewed
Review of Other/Old Records Reveals: Records (reviewed discharge summary from 07/31/24 patient seen for acute CVA , reviewed transesophageal echo from 07/31/24 ef 55-60%)
Source: patient and records
Patient Management
Escalation/DeEscalation of care consider admission/obs:
reviewed case with my attending
ED Attending Note
-
Portions of this chart may have been created with voice recognition software.� Occasional wrong word or��sound alike� substitutions may have occurred due to the inherent limitations of voice recognition software.
Discharge Plan
Departure
Patient Disposition: Home (Routine Discharge)
Date of Disposition: 08/04/24
Time of Disposition: 15:47
Patient with high blood pressure during this ER visit?: No
Condition: Good
Discharge Problem:
Fall, Abrasion of head
Instructions: Head Injury in Adults (DC), Preventing falls in adults
Prescriptions:
No Action
aspirin 81 MG tablet,delayed release (DR/EC)
81 mg PO DAILY Qty: 0 0RF
metoprolol tartrate 50 MG tablet
50 mg PO BID Qty: 60 3RF
nitroglycerin 0.4 MG tablet, sublingual
0.4 mg sublingual [id number] PRN (Reason: Chest Pain ) Qty: 25 3RF
losartan 50 mg Tablet
50 mg PO DAILY
pantoprazole 40 MG tablet,delayed release (DR/EC)
40 mg PO DAILY
rosuvastatin 40 mg Tablet
40 mg PO DAILY
levothyroxine 50 mcg Tablet
50 mcg PO DAILY
hydrochlorothiazide 25 mg Tablet
25 mg PO DAILY
clopidogrel 75 mg Tablet
75 mg PO DAILY 21 Days Qty: 21 0RF
Referrals:
Do Hernandez PA-C [Family Provider] -
Activity Restrictions/Additional Instructions:
Your CAT scan of your head showed no acute bleeding, no fracture. Your EKG demonstrated normal sinus rhythm with no dysrhythmias.
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
PLEASE RETURN TO EMERGENCY DEPARTMENT SHOULD YOU DEVELOP HEADACHES, NAUSEA AND VOMITING, SYNCOPAL EPISODES, PALPITATIONS, CHEST PAIN, SHORTNESS OF BREATH, WEAKNESS IN ONE-SIDED BODY VERSUS OTHER, NECK PAIN, OR ANY OTHER SIGNS OR SYMPTOMS WORRISOME
TO YOU.
Interventions
Interventions:
*Risk Screen - Suicide Last Done: 08/04/24 11:49
*General Assessment Last Done: 08/04/24 11:49
*Neglect/Abuse Screening Last Done: 08/04/24 11:49
ED- Fall Risk Assessment Last Done: 08/04/24 14:00
*ED COVID-19 Vaccine History Last Done: 08/04/24 11:49
*Nursing Disposition Last Done: 08/04/24 16:11
ED- Neurological Assessment Last Done: 08/04/24 14:00
ED-Skin Assessment Last Done: 08/04/24 14:00
Discharge Date and Time
Discharge Date/Time: 08/04/24 16:12
Print Language: [email or web address]
[2024-08-04 14:00] VITALS: BP 116/76
[2024-08-04] MEDS: NSS 1000 IV (14:00)
[2024-08-04 14:14] LABS: % Basophils 0.5 % (0-2); % Eosinophils 0.3 % (0-6); % Immature Granulocytes 0.2 % (0-0.5); % Lymphocytes 5.1 % (20.5-51.1); % Neutrophils 86.9 % (42.2-75.2); Absolute Lymphocytes 0.3 10^3/uL (1.2-3.4); Absolute Monocytes 0.4 10^3/uL (0.1-0.6); Absolute Neutrophils 5.1 10^3/uL (1.4-6.5); Hematocrit 39.7 % (37.0-47.0); Hemoglobin 12.6 g/dL (12.0-16.0); Mean Corp Hgb Conc. 31.7 g/dL (33.0-37.0); Mean Corpuscular Hgb 26.3 pg (27.0-31.0); Mean Corpuscular Volume 82.9 fL (81.0-99.0); Mean Platelet Volume 10.4 fL (7.4-10.4); Nucleated Red Blood Cells % 0 %; Platelet Count 213 10^3/uL (130-400); Red Blood Cell Count 4.79 10^6/uL (4.20-5.40); Red Cell Dist. Width 15.9 % (11.5-14.5); White Blood Cell Count 5.9 10^3/uL (4.8-10.8)
[2024-08-04 14:24] LABS: ALT (SGPT) 19 U/L (0-35); AST (SGOT) 25 U/L (14-36); Alkaline Phosphatase 127 U/L (38-126); Blood Urea Nitrogen 15 mg/dl (7-17); Carbon Dioxide 27 mmol/L (22-30); Chloride 101 mmol/L (98-107); Glucose 97 mg/dl (70-99); Potassium 3.4 mmol/L (3.5-5.1); Sodium 137 mmol/L (135-145); Total Bilirubin 0.8 mg/dl (0.2-1.3); Total Protein 6.8 g/dl (6.3-8.2); eGFR > 60.00
[2024-08-04 16:00] VITALS: BP 128/76
== END 2024-08-04 16:12 | disposition home or self-care (01) ==
LOC: EMR 11:36
PROVIDERS: Physician Assistant; EMERGENCY PHYSICIAN Emergency Medicine; FAMILY PHYSICIAN Student in an Organized Health Care Education/Training Program
DX: R55 Syncope and collapse (principal); S00.01XA Abrasion of scalp, initial encounter; W19.XXXA Unspecified fall, initial encounter; I25.10 Atherosclerotic heart disease of native coronary artery without angina pectoris; Z86.73 Personal history of transient ischemic attack (TIA), and cerebral infarction without residual deficits; I10 Essential (primary) hypertension; E78.00 Pure hypercholesterolemia, unspecified
CPT/HCPCS: 99285; 96360; 70450; 80053; 85025; 93005

== ENCOUNTER → 2025-01-09 11:45 | Outpatient (REF) | payer OTHER, SELFPAY | LOC: RAD 11:45 | PROVIDERS: ATTENDING PHYSICIAN Surgery; FAMILY PHYSICIAN Student in an Organized Health Care Education/Training Program | DX: R10.31 Right lower quadrant pain (principal) | CPT/HCPCS: 74177; Q9967 ==